=== PATIENT | female | born 1990 | race African-American/Black ===

== ENCOUNTER 2020-02-18 10:08 | Outpatient (REF) | payer OTHER, SELFPAY ==
[2020-02-18 11:08] LABS: MANUAL DIFF FLAG NO
[2020-02-18 11:20] LABS: Eosinophils Absolute Auto 0.1 X10*3/uL (0.0-0.4); Eosinophils Percent Auto 1.4 % (0-4); Hematocrit 38.9 % (37-47); Hemoglobin 11.2 g/dl (12.0-16.0); Imm Gran Abs Auto 0.01 X10*3/uL (0.00-0.03); Imm Gran Pct Auto 0.2 % (0.0-0.4); Lymphocytes Absolute Auto 2.7 X10*3/uL (1.2-4.9); Mean Corpuscular HGB Conc 28.8 g/dl (31.0-35.0); Mean Corpuscular Hemoglobin 23.1 pg (27.0-33.0); Mean Corpuscular Volume 80.2 fL (80-98); Mean Platelet Volume 9.7 fL (9.4-12.3); Monocytes Absolute Auto 0.2 X10*3/uL (0.1-1.2); Monocytes Percent Auto 4.8 % (2-11); Neutrophils Percent Auto 39.6 % (45-73); Platelet Count 306 X10*3/uL (160-400); Red Blood Count 4.85 X10*6/uL (4.20-5.50); Red Cell Distribution Width 21.6 % (11.0-16.0)
[2020-02-18 11:36] LABS: Anion Gap 10 (12-20); Blood Urea Nitrogen 9 mg/dL (9-16); Calcium 9.2 mg/dL (8.4-10.2); Carbon Dioxide 25 mmol/L (22-29); Chloride 105 mmol/L (96-108); Cholesterol 214 mg/dL; Estimated Glomerular Filt Rate > 60; Glucose Fasting 86 mg/dL (60-99); HDL Cholesterol 52 mg/dL; LDL Cholesterol Calculated 147 mg/dl; Potassium 4.1 mmol/l (3.3-5.1); Sodium 136 mmol/L (135-145); Triglycerides 76 mg/dL
[2020-02-18 11:59] LABS: Ferritin 19 ng/mL (10-122); TSH reflex Free T4 0.76 mIU/mL (0.32-4.0)
== END 2020-02-18 10:09 | disposition home or self-care (01) ==
LOC: HO.HMGCLDS 10:08
PROVIDERS: PCP Internal Medicine; Visit Provider Internal Medicine
DX: E61.1 Iron deficiency (principal); Z00.01 Encounter for general adult medical examination with abnormal findings
CPT/HCPCS: 36415; 80048; 80061; 82728; 84443; 85025

== ENCOUNTER 2020-03-28 12:10 | Emergency (ER) | payer OTHER, SELFPAY ==
[2020-03-28 12:41] VITALS: BP 130/67; PULSE 98; RESP 18; TEMP 37.1; O2SAT 98; BMI 30.1
--- NOTE | 2020-03-28 15:14 | ED.GENADULT ---
HPI - General Adult General Chief complaint: General Medical Stated complaint: drainage to be removed - surgery in [place] Time Seen by Provider: 03/28/20 15:03 Source: patient Mode of arrival: ambulatory History of Present Illness HPI narrative: 29-year-old female with past medical history of iron deficiency anemia, tachycardia, presenting to the ED requesting abdominal drain removal S/P abdominal/back/flank liposuction with [place] Butt Lift in [place] on 03/20/2020. States was supposed to have drain removed on 03/24 in [place], however, was draining too much so surgeon left drain in, and now patient is back in [place]. Denies drainage at present. Reports residual soreness. Denies fever, chills, nausea/vomiting Onset (ago): day(s) Related Data Home Medications Medication Instructions Recorded Confirmed ferrous sulfate PO 02/04/20 02/25/20 multivitamin 1 tab PO DAILY 02/04/20 02/25/20 Allergies Allergy/AdvReac Type Severity Reaction Status Date / Time latex Allergy Unknown Unknown Verified 02/02/20 12:05 pseudoephedrine [Sudafed] Allergy Unknown unknown Verified 02/02/20 12:05 Review of Systems Review of Systems: Constitutional: No Weight loss, No Fever, No Chills Gastrointestinal: No Nausea, No Vomiting, No Diarrhea, No Constipation, + Abdominal soreness Genitourinary: No irregular bleeding, No Dysuria, No Urinary Frequency, No Hematuria, No Flank Pain Musculoskeletal: No joint pain, No Myalgias, No Joint Swelling Skin: +abdominal/back bruising, No rash Yes all other systems are reviewed and are negative [facility] Past Medical History Medical History (Updated 03/28/20 @ 16:08 by EYAD Garner) Encounter for general adult medical examination with abnormal findings History of pica Iron deficiency Palpitations Tachycardia Surgical History No pertinent past surgical history Family History Family History Father Aneurysm Mother No problems noted. Maternal Grandmother HTN (hypertension) Maternal Grandfather No problems noted. Paternal Grandfather No problems noted. Paternal Grandmother No problems noted. Daughter No problems noted. Social History Social History Alcohol intake: never Smoking Status: Never smoker Use of substances other than those prescribed or required for medical reasons: No Advance Directives: No Advance Directives Information Provided: No Physical Exam Vital Signs: Vital Signs: Last Vital Signs Temp 98.8 F 03/28/20 12:41 Pulse 98 03/28/20 12:41 Resp 18 03/28/20 12:41 BP 130/67 03/28/20 12:41 Pulse Ox 98 03/28/20 12:41 Body Mass Index 30.1 Const: General: cooperative and healthy appearing Orientation/consciousness: patient oriented x3 Limitations: no limitations HENMT: Head: Yes normal to inspection Ears: hearing grossly normal bilaterally General nose exam: Normal external nose present Face and sinus: Yes normal facial exam Eyes: General: appearance normal, both eyes and all related structures EOM: EOMs intact bilaterally Neck: Neck: Yes normal visual inspection Resp: Effort & Inspection: normal respiratory effort Cardio: Rate: regular rate GI: Other: Patient will not sit/lay for proper abdominal exam due to [place] Butt Lift Diffuse healing ecchymosis to abdomen/back Bulb suction drain intact to right lower quadrant/suprapubic region. No surrounding cellulitis/fluctuance/induration. Small amount of serosanguineous drainage Inspection: Yes normal to inspection Palpation (GI): Soft to palpation, Tenderness to palpation present (GI) (Mild tenderness to lower abdomen), no guarding and not rigid Skin: Rashes: no rashes Wounds: no wounds Neuro: General: patient oriented x3 Gait exam (Neuro): Normal gait present Extrem: General: Yes normal to inspection Course Course Course Narrative: Drain removed in ED without complications. Dressing applied 1605-patient left prior to DC paperwork Medical Decision Making [facility] Narrative Medical decision making narrative: 29-year-old female with past medical history of iron deficiency anemia, tachycardia, presenting to the ED requesting abdominal drain removal S/P abdominal/back/flank liposuction with [place] Butt Lift in [place] on 03/20/2020. On exam VSS, NAD/well-appearing, bulb suction drain intact to right suprapubic/right lower quadrant area without surrounding infection/fluctuance or induration. Case discussed with on-call surgeon, Dr. Quintanilla, recommended removal of drain in the ED, and pt can follow-up in his office on Sunday Discharge Plan Discharge Clinical Impression: Post-operative complication Patient Disposition: Elopement Instructions: Surgical Site Infections (ED) Additional Instructions: Your drain was removed today in the ED. You need to follow-up with the surgeon on Sunday Keep area dry and clean It is normal for it to drain a little for the next 48 hours if you develop have fever, draining persists or worsens, area begins look infected, is red, or their is pus drainage return to the ED Prescriptions: No Action multivitamin [One-A-Day Essential] Tablet 1 tab PO DAILY RF: 0 ferrous sulfate PO RF: 0 Referrals: Skyler Quintanilla MD [Physician] - 2 days Discharge Date/Time: 03/28/20 16:06
--- NOTE | 2020-03-28 16:00 | PC.NURSE ---
PT PRESENTS TO ED REQUESTING TO HAVE ABD DRAIN REMOVED WHICH WAS RECENTLY PLACED IN [place] S/O LIPOSUCTION. PT OFFERS NO ACUTE COMPLAINTS, DRAINAGE INSERTION SITE SKIN INTACT W/OUT REDNESS OR SIGNS OF INFECTION, DRAIN REMOVED BY PA. PT AWARE/AGREEABLE TO PLAN OF CARE AND PENDING D/C W/ FOLLOW UP WITH SURGEON.
--- NOTE | 2020-03-28 16:06 | PC.NURSE ---
PT ELOPED PRIOR TO RECEIVING D/C [facility]
== END 2020-03-28 16:06 | disposition left against medical advice (07) ==
PROVIDERS: Emergency Provider Emergency Medicine Emergency Medical Services
DX: L76.82 Other postprocedural complications of skin and subcutaneous tissue (principal); R10.31 Right lower quadrant pain; Y83.4 Other reconstructive surgery as the cause of abnormal reaction of the patient, or of later complication, without mention of misadventure at the time of the procedure; Y81.3 Surgical instruments, materials and general- and plastic-surgery devices (including sutures) associated with adverse incidents
CPT/HCPCS: 99282; 99284

== ENCOUNTER 2021-11-25 12:41 | Outpatient (REF) | payer OTHER, SELFPAY ==
[2021-11-25 13:49] LABS: MANUAL DIFF FLAG NO
[2021-11-25 13:50] LABS: Basophils Percent Auto 0.2 % (0-2); Eosinophils Percent Auto 0.8 % (0-4); Hematocrit 37.9 % (37.0-47.0); Hemoglobin 11.8 g/dl (12.0-16.0); Imm Gran Abs Auto 0.01 X10*3/uL (0.00-0.03); Imm Gran Pct Auto 0.2 % (0.0-0.4); Lymphocytes Absolute Auto 2.3 X10*3/uL (1.2-4.9); Lymphocytes Percent Auto 46.9 % (20-40); Mean Corpuscular HGB Conc 31.1 g/dl (31.0-35.0); Mean Corpuscular Volume 83.7 fL (80.0-98.0); Mean Platelet Volume 10.3 fL (9.4-12.3); Monocytes Absolute Auto 0.3 X10*3/uL (0.1-1.2); Monocytes Percent Auto 6.8 % (2-11); Neutrophils Absolute Auto 2.2 x10*3/uL (2.0-8.3); Neutrophils Percent Auto 45.1 % (45-73); Platelet Count 286 X10*3/uL (160-400); Red Blood Count 4.53 X10*6/uL (4.20-5.50); Red Cell Distribution Width 13.7 % (11.0-16.0); White Blood Count 4.8 X10*3/uL (4.8-10.8)
[2021-11-25 14:54] LABS: Alanine Aminotransferase < 6 U/L (0-31); Albumin Level 4.4 g/dL (3.5-5.0); Alkaline Phosphatase 65 U/L (39-117); Anion Gap 13 (12-20); Aspartate Amino Transferase 13 U/L (5-31); Bilirubin Total 0.4 mg/dL (0.0-1.0); Blood Urea Nitrogen 8 mg/dL (9-16); Calcium 9.2 mg/dL (8.4-10.2); Carbon Dioxide 24 mmol/L (22-29); Chloride 108 mmol/L (96-108); Estimated Glomerular Filt Rate > 60; Glucose Random 98 mg/dL (60-115); Iron 55 mcg/dL (30-160); Percent Iron Saturation 13 % (15-50); Potassium 4.4 mmol/L (3.3-5.1); Sodium 141 mmol/L (135-145); Total Iron Binding Capacity 428 mcg/dL (228-428); Total Protein 7.6 g/dL (6.5-8.0); Unsaturated Iron Binding 373 ug/dL
[2021-11-25 15:06] LABS: TSH reflex Free T4 0.61 uIU/mL (0.32-4.0)
[2021-11-25 15:09] LABS: Vitamin B12 297 pg/mL (200-900)
== END 2021-11-25 12:42 | disposition home or self-care (01) ==
LOC: HO.HMGCLDS 12:41
PROVIDERS: PCP Internal Medicine; Visit Provider Internal Medicine
DX: R20.2 Paresthesia of skin (principal); D50.9 Iron deficiency anemia, unspecified
CPT/HCPCS: 36415; 80053; 82607; 83540; 84443; 85025

== ENCOUNTER 2022-03-23 12:05 | Outpatient (REF) | payer OTHER, SELFPAY ==
--- NOTE | 2022-03-23 10:00 | EMG_ITS ---
Right median and ulnar motor and sensory studies were performed. Right radial sensory study was performed and paraspinal muscles were tested with a needle. IMPRESSION: This is an unremarkable study with no significant finding. MD BAKARI Echols/[facility] / [id number]
== END 2022-03-23 12:06 | disposition home or self-care (01) ==
LOC: HO.NEURO 12:05
PROVIDERS: PCP Internal Medicine; Visit Provider Internal Medicine
DX: R20.2 Paresthesia of skin (principal)
CPT/HCPCS: 95886; 95909

== ENCOUNTER 2022-03-24 08:48 | Outpatient (REF) | payer OTHER, SELFPAY ==
[2022-03-24 11:22] LABS: MANUAL DIFF FLAG NO
[2022-03-24 11:28] LABS: Basophils Percent Auto 0.2 % (0-2); Eosinophils Absolute Auto 0.1 X10*3/uL (0.0-0.4); Eosinophils Percent Auto 0.9 % (0-4); Hematocrit 38.1 % (37.0-47.0); Hemoglobin 11.3 g/dl (12.0-16.0); Imm Gran Abs Auto 0.01 X10*3/uL (0.00-0.03); Imm Gran Pct Auto 0.2 % (0.0-0.4); Lymphocytes Percent Auto 36.6 % (20-40); Mean Corpuscular HGB Conc 29.7 g/dl (31.0-35.0); Mean Corpuscular Hemoglobin 25.6 pg (27.0-33.0); Mean Corpuscular Volume 86.4 fL (80.0-98.0); Mean Platelet Volume 10.8 fL (9.4-12.3); Monocytes Absolute Auto 0.3 X10*3/uL (0.1-1.2); Monocytes Percent Auto 4.8 % (2-11); Neutrophils Absolute Auto 3.1 x10*3/uL (2.0-8.3); Neutrophils Percent Auto 57.3 % (45-73); Platelet Count 286 X10*3/uL (160-400); Red Blood Count 4.41 X10*6/uL (4.20-5.50); Red Cell Distribution Width 14.6 % (11.0-16.0); White Blood Count 5.4 X10*3/uL (4.8-10.8)
[2022-03-24 12:07] LABS: Ferritin 11 ng/mL (10-122); TSH reflex Free T4 0.66 uIU/mL (0.32-4.0)
[2022-03-24 12:15] LABS: Vitamin B12 329 pg/mL (200-900)
[2022-03-28 16:39] LABS: Vitamin D 25-OH, D2 <4 ng/mL; Vitamin D 25-OH, D3 11 ng/mL; Vitamin D 25-OH, Total 11 ng/mL (30-100)
== END 2022-03-24 08:49 | disposition home or self-care (01) ==
LOC: HO.HMGCLDS 08:48
PROVIDERS: PCP Internal Medicine; Visit Provider Internal Medicine
DX: D50.9 Iron deficiency anemia, unspecified (principal); K59.01 Slow transit constipation; R53.83 Other fatigue
CPT/HCPCS: 36415; 82306; 82607; 82728; 84443; 85025

== ENCOUNTER 2022-12-27 13:09 | Outpatient (AMB) | payer OTHER, SELFPAY ==
[2022-12-27 13:12] VITALS: BP 126/82; PULSE 69; O2SAT 96; BMI 29.7
--- NOTE | 2022-12-27 13:12 | MHC.PC.OV ---
Vital Signs 12/27/22 13:12 Height 5 ft 2.5 in Weight 165 lb 4 oz BMI 29.7 BP 126/82 Blood Pressure Location Rt brachial Position Sitting Pulse 69 Pulse Source Pulse Oximeter Pulse Oximetry (%) 96 Oxygen Delivery Method Room Air Intake Visit Reasons: Chest/Back pain Allergies No Known Allergies Allergy (Verified 12/27/22 13:12) Medication List - Last Reconciled 12/27/22 by Joe Hutchinson MD cholecalciferol (vitamin D3) 25 mcg PO DAILY 90 days cyanocobalamin (vitamin B-12) 1,000 mcg PO DAILY 90 days [ferrous sulfate 45 mg daily. pt reports] multivitamin (One-A-Day Essential tablet) 1 tab PO DAILY sennosides-docusate sodium 8.6-50 mg (Senna Plus) 2 tab-caps (2 x 8.6-50 mg) PO BEDTIME PRN 90 days Tobacco use date assessed: 12/27/22 Dental Screening Dental Screen Date: 12/27/22 Did you have a dental visit in the last 12 months?: No Did you have a dental problem in the last 6 months where you did not have access to dental care?: No Was dental information given to patient?: Patient declined HPI Chest/Back pain HPI Details Patient is a 32-year-old female came in today to talk about a medical problem Patient says that she was in the gym doing exercises and next day she started having severe chest pain which was radiating to back Patient ended up going to emergency room where she was evaluated with EKG and was told that it is not cardiac related pain. Patient states that her half sister recently with sudden cardiac arrest she was 42 years old. Which is making her very nervous. She would like to be evaluated by a bliss press operator. I have placed a referral for her. Meanwhile she is requesting a letter that she may continue with gym training. Letter provided She may continue with stationary exercises at gym while waiting to be evaluated by Cardiology. [facility] Medical History Palpitations Tachycardia Encounter for general adult medical examination with abnormal findings Iron deficiency History of pica Surgical History No pertinent past surgical history Family History Father Aneurysm Mother No problems noted. Maternal Grandmother HTN (hypertension) Maternal Grandfather No problems noted. Paternal Grandfather No problems noted. Paternal Grandmother No problems noted. Daughter No problems noted. Social History Housing: House Alcohol intake: never Patient Tobacco Use Status: Never used Tobacco e-Cigarette/Vaping Use: Never Used Current occupational status: employed Cognitive needs: No Hearing needs: No Vision needs: Yes Questionnaire PHQ-9 Over the last 2 weeks, how often have you been bothered by any of the following problems? 33817 - PHQ-9 Billing: Patient declined-do not bill Source: Developed by Drs. Иван Lofton, Shikha Soto, Ganesh Sinha and colleagues, with an educational david from [employer]. Thrive Questionnaire Date Thrive assessed: 12/27/22 I am a: Patient What is your living situation today?: I choose not to answer this question Within the past 12 months, did the food you bought not last and you didn't have the money to get more?: I choose not to answer this question Within the past 12 months, did you worry whether your food would run out before you got money to buy more?: I choose not to answer this question Do you have trouble paying for medicines?: I choose not to answer this question Do you have trouble getting transportation to medical appointments?: I choose not to answer this question Do you have trouble paying your heating and electricity bill?: I choose not to answer this question Do you have trouble taking care of your child, family member or friend?: I choose not to answer this question Do you have trouble with day-to-day activities such as bathing, preparing meals, shopping, managing finances, etc.?: I choose not to answer this question Are you currently unemployed and looking for a job?: I choose not to answer this question Are you interested in more education?: I choose not to answer this question Currently or been in a relationship where the following occur: I choose not to answer this question AUDIT C Alcohol Use Questionnaire (AUDIT-C) 1. How often do you have a drink containing alcohol?: 2-4 times a month 2. How many drinks containing alcohol do you have on a typical day when you are drinking?: 1 or 2 3. How often do you have six or more drinks on one occasion?: Never Total Score: 2 Score Reviewed/Action Taken: Yes LUL-7 AMB Questionnaire LUL-7 Date LUL - 7 assessed: 12/27/22 Source: Developed by Drs. Иван Lofton, Shikha Soto, Ganesh Sinha and colleagues, with an educational david from [employer]. LUL-7 Assessment Billing LUL-7 Assessment Tool: pt declined-do not bill Review of Systems Const Denies chills and Denies fever(s) ENT Denies epistaxis and Denies nasal discharge Card Denies chest pain Resp Denies chest congestion, Denies cough and Denies hemoptysis GI Denies diarrhea and Denies nausea Skin/Breast Denies rash Neuro Reports no additional complaints Psych Reports no additional complaints Endo Reports no additional complaints Physical exam (Primary Care) Vital Signs: Last Vital Signs Pulse 69 12/27/22 13:12 BP 126/82 12/27/22 13:12 Pulse Ox 96 12/27/22 13:12 Oxygen Delivery Method Room Air 12/27/22 13:12 BMI result Body Mass Index 29.7 Tobacco/Smoking Status: Tobacco use Status Tobacco use date assessed 12/27/22 12/27/22 13:14 Patient Tobacco Use Status Never used Tobacco 12/27/22 13:14 e-Cigarette/Vaping Use Never Used 12/27/22 13:14 Thrive Assessment: Date of Thrive Assessment Date Thrive assessed 11/25/21 12/27/22 13:14 Currently or been in a relationship where the following occur: I choose not to answer this question Const General: cooperative, comfortable and no acute distress Orientation/consciousness: patient oriented x3 [facility] Head: Yes normocephalic Eyes General: appearance normal, both eyes and all related structures Neck Neck: Yes supple Resp Effort & Inspection: normal respiratory effort, no cough and no stridor Cardio Rhythm: regular rhythm Heart sounds: S1 normal heart sound present and S2 normal heart sound present Skin General skin exam: turgor normal Neuro General: patient oriented x3, tone normal and moves all extremities Extrem Right lower extremity: no edema Left lower extremity: no edema Assessment and Plan Assessment & Plan (1) Family history of sudden cardiac : Code(s): Z82.41 - Family history of sudden cardiac (2) Vitamin B 12 deficiency: Code(s): E53.8 - Deficiency of other specified B group vitamins (3) Vitamin D deficiency: Code(s): E55.9 - Vitamin D deficiency, unspecified (4) Iron deficiency anemia: Code(s): D50.9 - Iron deficiency anemia, unspecified Qualifiers: Iron deficiency anemia type: chronic blood loss Qualified Code(s): D50.0 - Iron deficiency anemia secondary to blood loss (chronic) (5) Iron deficiency: Code(s): E61.1 - Iron deficiency Plan Patient is a 32-year-old female came in today to talk about a medical problem Patient says that she was in the gym doing exercises and next day she started having severe chest pain which was radiating to back Patient ended up going to emergency room where she was evaluated with EKG and was told that it is not cardiac related pain. Patient states that her half sister recently with sudden cardiac arrest she was 42 years old. Which is making her very nervous. She would like to be evaluated by a bliss press operator. I have placed a referral for her. Meanwhile she is requesting a letter that she may continue with gym training. Letter provided She may continue with stationary exercises at gym while waiting to be evaluated by Cardiology. She is supposed to be on iron supplement vitamin-D supplement which she has stop taking She is due for CBC. Patient have a history of chronic anemia due to heavy menstrual cycle. Orders: Orders Vitamin D 25-OH (D2 and D3) Today D50.9 - Iron deficiency anemia, unspecified, E53.8 - Deficiency of other specified B group vitamins, E55.9 - Vitamin D deficiency, unspecified, E61.1 - Iron deficiency Vitamin B12 Today D50.9 - Iron deficiency anemia, unspecified, E53.8 - Deficiency of other specified B group vitamins, E55.9 - Vitamin D deficiency, unspecified, E61.1 - Iron deficiency Ferritin Today D50.9 - Iron deficiency anemia, unspecified, E53.8 - Deficiency of other specified B group vitamins, E55.9 - Vitamin D deficiency, unspecified, E61.1 - Iron deficiency Complete Blood Count Auto Diff Today D50.9 - Iron deficiency anemia, unspecified, E53.8 - Deficiency of other specified B group vitamins, E55.9 - Vitamin D deficiency, unspecified, E61.1 - Iron deficiency Comprehensive Met. Panel Today D50.9 - Iron deficiency anemia, unspecified, E53.8 - Deficiency of other specified B group vitamins, E55.9 - Vitamin D deficiency, unspecified, E61.1 - Iron deficiency LDL Cholesterol Direct Today D50.9 - Iron deficiency anemia, unspecified, E53.8 - Deficiency of other specified B group vitamins, E55.9 - Vitamin D deficiency, unspecified, E61.1 - Iron deficiency Referrals Cardiology Referral Z82.41 - Family history of sudden cardiac Coding Level of Care Code Est Pt Level 4 (96692) Diagnoses Family history of sudden cardiac Z82.41 Vitamin B 12 deficiency E53.8 Vitamin D deficiency E55.9 Iron deficiency anemia due to chronic blood loss D50.0 Iron deficiency anemia type: chronic blood loss Iron deficiency E61.1
== END 2022-12-27 14:10 | disposition home or self-care (01) ==
PROVIDERS: PCP Internal Medicine; Visit Provider Internal Medicine
DX: D50.0 Iron deficiency anemia secondary to blood loss (chronic) (principal); Z82.41 Family history of sudden cardiac death
CPT/HCPCS: 99214

== ENCOUNTER 2023-01-02 07:47 | Outpatient (REF) | payer OTHER, SELFPAY ==
[2023-01-02 11:52] LABS: MANUAL DIFF FLAG NO
[2023-01-02 12:05] LABS: Basophils Percent Auto 0.2 % (0-2); Eosinophils Percent Auto 0.7 % (0-4); Hematocrit 36.6 % (37.0-47.0); Hemoglobin 10.7 g/dl (12.0-16.0); Imm Gran Abs Auto 0.01 X10*3/uL (0.00-0.03); Imm Gran Pct Auto 0.2 % (0.0-0.4); Lymphocytes Percent Auto 34.7 % (20-40); Mean Corpuscular HGB Conc 29.2 g/dl (31.0-35.0); Mean Corpuscular Hemoglobin 22.4 pg (27.0-33.0); Mean Corpuscular Volume 76.6 fL (80.0-98.0); Mean Platelet Volume 11.2 fL (9.4-12.3); Monocytes Absolute Auto 0.2 X10*3/uL (0.1-1.2); Monocytes Percent Auto 4.1 % (2-11); Neutrophils Absolute Auto 3.4 x10*3/uL (2.0-8.3); Neutrophils Percent Auto 60.1 % (45-73); Platelet Count 242 X10*3/uL (160-400); Red Blood Count 4.78 X10*6/uL (4.20-5.50); Red Cell Distribution Width 17.3 % (11.0-16.0); White Blood Count 5.6 X10*3/uL (4.8-10.8)
[2023-01-02 12:30] LABS: Alanine Aminotransferase 6 U/L (0-31); Albumin Level 4.3 g/dL (3.5-5.0); Alkaline Phosphatase 69 U/L (39-117); Anion Gap 10 (12-20); Aspartate Amino Transferase 17 U/L (5-31); Bilirubin Total 0.5 mg/dL (0.0-1.0); Blood Urea Nitrogen 12 mg/dL (9-16); Calcium 9.3 mg/dL (8.4-10.2); Carbon Dioxide 22 mmol/L (22-29); Chloride 110 mmol/L (96-108); Cholesterol 182 mg/dL (<200); Estimated Glomerular Filt Rate > 60; Glucose Fasting 89 mg/dL (60-99); Glucose Random 89 mg/dL (60-115); HDL Cholesterol 57 mg/dL (>40); LDL Cholesterol Calculated 115 mg/dL (<100); Potassium 3.7 mmol/L (3.3-5.1); Sodium 138 mmol/L (135-145); Total Protein 7.8 g/dL (6.5-8.0); Triglycerides 50 mg/dL (<150)
[2023-01-02 12:48] LABS: Vitamin B12 366 pg/mL (200-900)
[2023-01-02 12:53] LABS: Ferritin 10 ng/mL (10-122)
[2023-01-04 06:48] LABS: LDL Cholesterol Direct 115 mg/dL (<100)
[2023-01-06 16:18] LABS: Vitamin D 25-OH, D2 <4 ng/mL; Vitamin D 25-OH, D3 16 ng/mL; Vitamin D 25-OH, Total 16 ng/mL (30-100)
== END 2023-01-02 07:48 | disposition home or self-care (01) ==
LOC: HO.HMGCLDS 07:47
PROVIDERS: PCP Internal Medicine; Visit Provider Internal Medicine
DX: Z00.01 Encounter for general adult medical examination with abnormal findings (principal); D50.9 Iron deficiency anemia, unspecified; E53.8 Deficiency of other specified B group vitamins; E55.9 Vitamin D deficiency, unspecified; R53.83 Other fatigue
CPT/HCPCS: 36415; 80053; 80061; 82306; 82607; 82728; 83721; 84443; 85025

== ENCOUNTER 2023-01-04 08:12 | Outpatient (AMB) | payer OTHER, SELFPAY ==
--- NOTE | 2023-01-04 10:08 | MHC.PC.OV ---
Vital Signs 01/04/23 10:35 Height 5 ft 3 in Weight 165 lb BMI 29.2 Intake Visit Reasons: Discuss Labs ~ Allergies No Known Allergies Allergy (Verified 01/04/23 10:08) Medication List - Last Reconciled 01/04/23 by Joe Hutchinson MD No Known Home Meds Tobacco use date assessed: 01/04/23 Dental Screening Dental Screen Date: 01/04/23 Did you have a dental visit in the last 12 months?: No Did you have a dental problem in the last 6 months where you did not have access to dental care?: No Was dental information given to patient?: Patient has dentist HPI Discuss Labs ~ HPI Details Patient is 32 year old female who continued to complain of feeling tired Patient have a long history of constipation, most likely have internal hemorrhoids. Currently she is taking jjyh-[id number] medication which has. I have sent senna S tablets as well she may take 1 at night as needed and drink plenty of water Patient continued to be iron deficiency anemic with microcytic indices I have sent iron supplement which can cause more constipation patient is aware of that I have also book her appointment with gastroenterology for further evaluation. She is also deficient in vitamin-D and B12 supplements sent patient will repeat labs again in 3 months. She is also complaining that she is exercising and trying to eat right but unable to lose any weight. Her BMI is 29.2. I have booked her appointment with the dietitian for consultation. [facility] Medical History Palpitations Tachycardia Encounter for general adult medical examination with abnormal findings Iron deficiency History of pica Surgical History No pertinent past surgical history Family History Father Aneurysm Mother No problems noted. Maternal Grandmother HTN (hypertension) Maternal Grandfather No problems noted. Paternal Grandfather No problems noted. Paternal Grandmother No problems noted. Daughter No problems noted. Social History Housing: House Alcohol intake: never Patient Tobacco Use Status: Never used Tobacco e-Cigarette/Vaping Use: Never Used Current occupational status: employed Cognitive needs: No Hearing needs: No Vision needs: Yes Questionnaire Thrive Questionnaire Date Thrive assessed: 12/27/22 AUDIT C Alcohol Use Questionnaire (AUDIT-C) 1. How often do you have a drink containing alcohol?: 2-4 times a month 2. How many drinks containing alcohol do you have on a typical day when you are drinking?: 1 or 2 3. How often do you have six or more drinks on one occasion?: Never Total Score: 2 Score Reviewed/Action Taken: Yes LUL-7 AMB Questionnaire LUL-7 Date LUL - 7 assessed: 12/27/22 Source: Developed by Drs. Иван Lofton, Shikha Soto, Ganesh Sinha and colleagues, with an educational david from [employer]. Review of Systems Const Denies chills and Denies fever(s) ENT Denies epistaxis and Denies nasal discharge Card Denies chest pain Resp Denies chest congestion, Denies cough and Denies hemoptysis GI Denies diarrhea and Denies nausea Skin/Breast Denies rash Neuro Reports no additional complaints Psych Reports no additional complaints Endo Reports no additional complaints Physical exam (Primary Care) BMI result Body Mass Index 29.2 Tobacco/Smoking Status: Tobacco use Status Tobacco use date assessed 01/04/23 01/04/23 10:09 Patient Tobacco Use Status Never used Tobacco 01/04/23 10:09 e-Cigarette/Vaping Use Never Used 01/04/23 10:09 Thrive Assessment: Date of Thrive Assessment Date Thrive assessed 12/27/22 01/04/23 10:09 Telehealth Telehealth Location of provider rendering services: practice address Location of patient: address on file Patient Identification confirmed using: Name, : Yes Telehealth method: video Patient verbally consented to treatment: Yes Patient verbally consented to billing insurance company: Yes Patient informed of any privacy concerns related to visit: Yes Assessment and Plan Assessment & Plan (1) Iron deficiency anemia: Code(s): D50.9 - Iron deficiency anemia, unspecified Qualifiers: Iron deficiency anemia type: chronic blood loss Qualified Code(s): D50.0 - Iron deficiency anemia secondary to blood loss (chronic) (2) Tired: Code(s): R53.83 - Other fatigue (3) Vitamin D deficiency: Code(s): E55.9 - Vitamin D deficiency, unspecified (4) Vitamin B 12 deficiency: Code(s): E53.8 - Deficiency of other specified B group vitamins (5) Over weight: Code(s): E66.3 - Overweight (6) Hemorrhoids: Code(s): K64.9 - Unspecified hemorrhoids Qualifiers: Hemorrhoid type: first degree Qualified Code(s): K64.0 - First degree hemorrhoids (7) Constipation by delayed colonic transit: Code(s): K59.01 - Slow transit constipation Plan Patient is 32 year old female who continued to complain of feeling tired Patient have a long history of constipation, most likely have internal hemorrhoids. Currently she is taking embz-uzh-fqkcjgw medication which has. I have sent senna S tablets as well she may take 1 at night as needed and drink plenty of water Patient continued to be iron deficiency anemic with microcytic indices I have sent iron supplement which can cause more constipation patient is aware of that I have also book her appointment with gastroenterology for further evaluation. She is also deficient in vitamin-D and B12 supplements sent patient will repeat labs again in 3 months. She is also complaining that she is exercising and trying to eat right but unable to lose any weight. Her BMI is 29.2. I have booked her appointment with the dietitian for consultation. Orders: Orders Ferritin 3 Months D50.9 - Iron deficiency anemia, unspecified, E53.8 - Deficiency of other specified B group vitamins, E55.9 - Vitamin D deficiency, unspecified, E66.3 - Overweight, K59.01 - Slow transit constipation, K64.9 - Unspecified hemorrhoids, R53.83 - Other fatigue Complete Blood Count Auto Diff 3 Months D50.9 - Iron deficiency anemia, unspecified, E53.8 - Deficiency of other specified B group vitamins, E55.9 - Vitamin D deficiency, unspecified, E66.3 - Overweight, K59.01 - Slow transit constipation, K64.9 - Unspecified hemorrhoids, R53.83 - Other fatigue Vitamin B12 Today D50.9 - Iron deficiency anemia, unspecified, E53.8 - Deficiency of other specified B group vitamins, E55.9 - Vitamin D deficiency, unspecified, E66.3 - Overweight, K59.01 - Slow transit constipation, K64.9 - Unspecified hemorrhoids, R53.83 - Other fatigue Vitamin D 25-OH (D2 and D3) Today D50.9 - Iron deficiency anemia, unspecified, E53.8 - Deficiency of other specified B group vitamins, E55.9 - Vitamin D deficiency, unspecified, E66.3 - Overweight, K59.01 - Slow transit constipation, K64.9 - Unspecified hemorrhoids, R53.83 - Other fatigue Referrals Gastroenterology Referral K59.01 - Slow transit constipation, K64.9 - Unspecified hemorrhoids Coding Level of Care Code Tele Est Pt Level 4 (55164) Diagnoses Iron deficiency anemia due to chronic blood loss D50.0 Iron deficiency anemia type: chronic blood loss Tired R53.83 Vitamin D deficiency E55.9 Vitamin B 12 deficiency E53.8 Over weight E66.3 Grade I hemorrhoids K64.0 Hemorrhoid type: first degree Constipation by delayed colonic transit K59.01 Time Spent (min) 30 Comment 5 prep, 16 with patient, 9 charting, coordination of care
[2023-01-04 10:35] VITALS: BMI 29.2
== END 2023-01-04 12:32 | disposition home or self-care (01) ==
LOC: HO.HMGC 08:12
PROVIDERS: PCP Internal Medicine; Visit Provider Internal Medicine
DX: D50.0 Iron deficiency anemia secondary to blood loss (chronic) (principal); R53.83 Other fatigue; E55.9 Vitamin D deficiency, unspecified; E53.8 Deficiency of other specified B group vitamins; E66.3 Overweight; K64.0 First degree hemorrhoids; K59.01 Slow transit constipation
CPT/HCPCS: 99214

== ENCOUNTER 2023-02-14 08:44 | Outpatient (AMB) | payer OTHER, SELFPAY ==
--- NOTE | 2023-02-14 08:47 | A.OFFPC_ITS ---
Vital Signs 3 02/14/23 08:49 Height 5 ft 3 in Weight 167 lb BMI 29.6 BP 110/80 Blood Pressure Location Rt brachial Position Sitting Pulse 80 Pulse Source Pulse Oximeter Pulse Oximetry (%) 97 Oxygen Delivery Method Room Air Intake Visit Reasons: Right side numbness intermittent Allergies No Known Allergies Allergy (Verified 02/14/23 08:49) Medication List - Last Reconciled 02/14/23 by Joe Hutchinson MD No Known Home Meds Tobacco use date assessed: 02/14/23 Dental Screening Dental Screen Date: 02/14/23 Did you have a dental visit in the last 12 months?: No Was dental information given to patient?: Patient has dentist HPI Right side numbness intermittent 2 HPI0 Details Patient has been going to gym and lifting weights She came in today with a chief complaint of feeling of numbness in her right shoulder area And chest discomfort in middle of chest which gets worse when she moves her arms. 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 Letter provided she may continue aerobic exercises and treadmill but no lifting wait for another month. EKG done today showed no acute findings normal sinus rhythm. There is slight are are we have indeed 3 and AVF which does not explain her discomfort There is no change from EKG done in 2019 Patient have iron deficiency anemia, she is supposed to be on iron supplement but still not taking Explained to her that unless she takes the iron she is going to continue feel tired Constipation is better. [facility] Medical History Palpitations Tachycardia Encounter for general adult medical examination with abnormal findings Iron deficiency History of pica Surgical History No pertinent past surgical history Family History Father Aneurysm Mother No problems noted. Maternal Grandmother HTN (hypertension) Maternal Grandfather No problems noted. Paternal Grandfather No problems noted. Paternal Grandmother No problems noted. Daughter No problems noted. Social History Housing: House Alcohol intake: never Patient Tobacco Use Status: Never used Tobacco e-Cigarette/Vaping Use: Never Used Current occupational status: employed Cognitive needs: No Hearing needs: No Vision needs: Yes Questionnaire Thrive Questionnaire Date Thrive assessed: 12/27/22 LUL-7 AMB Questionnaire LUL-7 Date LUL - 7 assessed: 12/27/22 Source: Developed by Drs. Иван Lofton, Shikha Soto, Ganesh Sinha and colleagues, with an educational david from [employer]. Review of Systems Const Denies chills and Denies fever(s) ENT Denies epistaxis and Denies nasal discharge Resp Denies chest congestion, Denies cough and Denies hemoptysis GI Denies diarrhea and Denies nausea Skin/Breast Denies rash Neuro Reports no additional complaints Psych Reports no additional complaints Endo Reports no additional complaints Physical exam (Primary Care) Vital Signs: Last Vital Signs Pulse 80 02/14/23 08:49 BP 110/80 02/14/23 08:49 Pulse Ox 97 02/14/23 08:49 Oxygen Delivery Method Room Air 02/14/23 08:49 BMI result Body Mass Index 29.6 Tobacco/Smoking Status: Tobacco use Status Tobacco use date assessed 02/14/23 02/14/23 08:52 Patient Tobacco Use Status Never used Tobacco 02/14/23 08:52 e-Cigarette/Vaping Use Never Used 02/14/23 08:52 Thrive Assessment: Date of Thrive Assessment Date Thrive assessed 12/27/22 02/14/23 08:52 Const General: cooperative, comfortable and no acute distress Orientation/consciousness: patient oriented x3 HENMT Head: Yes normocephalic Eyes General: appearance normal, both eyes and all related structures Neck Neck: Yes supple Chest Chest/axillae images: 2 1. Tender to pressure Resp Effort & Inspection: normal respiratory effort, no cough and no stridor Cardio Rhythm: regular rhythm Heart sounds: S1 normal heart sound present and S2 normal heart sound present Skin General skin exam: turgor normal Neuro Other: Motor 5 x 5, sensory intact both shoulders, DTR equal General: patient oriented x3, tone normal and moves all extremities Extrem Other: Both shoulders with full range of motion Right lower extremity: no edema Left lower extremity: no edema Office Procedures EKG [id number], Complete Assessment and Plan Assessment & Plan (1) Chest discomfort: Code(s): R07.89 - Other chest pain (2) Costochondritis: Code(s): M94.0 - Chondrocostal junction syndrome [Tietze] (3) Right shoulder strain: Code(s): S46.911A - Strain of unspecified muscle, fascia and tendon at shoulder and upper arm level, right arm, initial encounter Qualifiers: Encounter type: initial encounter Qualified Code(s): S46.911A - Strain of unspecified muscle, fascia and tendon at shoulder and upper arm level, right arm, initial encounter (4) Iron deficiency anemia: Code(s): D50.9 - Iron deficiency anemia, unspecified Qualifiers: Iron deficiency anemia type: chronic blood loss Qualified Code(s): D 50.0 - Iron deficiency anemia secondary to blood loss (chronic) (5) Constipation by delayed colonic transit: Code(s): K59.01 - Slow transit constipation Plan Patient has been going to gym and lifting weights She came in today with a chief complaint of feeling of numbness in her right shoulder area And chest discomfort in middle of chest which gets worse when she moves her arms. 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 Letter provided she may continue aerobic exercises and treadmill but no lifting wait for another month. EKG done today showed no acute findings normal sinus rhythm. There is slight are are we have indeed 3 and AVF which does not explain her discomfort There is no change from EKG done in 2019 Patient have iron deficiency anemia, she is supposed to be on iron supplement but still not taking Explained to her that unless she takes the iron she is going to continue feel tired Constipation is better. Orders: Orders 2 AMB EKG-In Office Today R07.89 - Other chest pain Coding Level of Care Code Est Pt Level 4 (96054) Diagnoses Chest discomfort R07.89 Costochondritis M94.0 Strain of right shoulder, initial encounter S46.911A Encounter type: initial encounter Iron deficiency anemia due to chronic blood loss D50.0 Iron deficiency anemia type: chronic blood loss Constipation by delayed colonic transit K59.01 CPT Codes EKG - CPT: [id number], Complete ([id number])
[2023-02-14 08:49] VITALS: BP 110/80; PULSE 80; O2SAT 97; BMI 29.6
== END 2023-02-14 09:19 | disposition home or self-care (01) ==
PROVIDERS: PCP Internal Medicine; Visit Provider Internal Medicine
DX: R07.89 Other chest pain (principal); M94.0 Chondrocostal junction syndrome [Tietze]; S46.911A Strain of unspecified muscle, fascia and tendon at shoulder and upper arm level, right arm, initial encounter; D50.0 Iron deficiency anemia secondary to blood loss (chronic); K59.01 Slow transit constipation
CPT/HCPCS: 93000; 99214

== ENCOUNTER 2023-02-14 13:31 | Outpatient (AMB) | payer OTHER, SELFPAY ==
--- NOTE | 2023-02-14 13:36 | A.OFFVIS_ITS ---
Intake Intake Visit Reasons: Constipation /hemorrhoids Intake Note: Patient new consult for Constipation and hemorrhoids. Patient cc: Constipation and loose stool with bloody hemorrhoids, Nauseas and vomiting in the morning. Campaign Management Specialist Required: No Accompanied by: Self / Same As Patient Allergies No Known Allergies Allergy (Verified 02/14/23 13:36) HPI HPI Comments History of Present Illness Details A 32-year-old female referred with chronic constipation since 2019- she is now having loose stools She says shes been anemic her entire life -she has never had any diagnoses-iron supplements from time to time Followed by PCP, has not yet started iron supplements, this course Senna- taken for 1 month- was helpful- She buys supplement from [employer]- glutamine- as well as other she thought were beneficial-l She has a hemorrhoid that had small amount of bleeding , intermittently. Menses- last 7 days Q 28 D- no BC She is requesting a colonoscopy-however has ever had 1. She has a family history soon cardiac, sudden she is awaiting to be evaluated by Cardiology in which causes her some anxiety as well No nausea, vomiting hematemesis, hematochezia fever chills PFSH Medical History Palpitations Tachycardia Encounter for general adult medical examination with abnormal findings Iron deficiency History of pica Surgical History No pertinent past surgical history Family History Father Aneurysm Mother No problems noted. Maternal Grandmother HTN (hypertension) Maternal Grandfather No problems noted. Paternal Grandfather No problems noted. Paternal Grandmother No problems noted. Daughter No problems noted. Social History Housing: House Alcohol intake: never Patient Tobacco Use Status: Never used Tobacco e-Cigarette/Vaping Use: Never Used Current occupational status: employed Cognitive needs: No Hearing needs: No Vision needs: Yes Review of Systems Const All systems reviewed & are unremarkable except as noted in HPI and below Card Denies chest pain and Denies dyspnea Resp Denies dyspnea GI Reports hematochezia and Reports change in bowel habits Physical Exam Const General: cooperative, healthy appearing, comfortable and no acute distress Limitations: no limitations Eyes Sclerae: sclerae normal Resp Effort & Inspection: normal respiratory effort and able to speak in complete sentences Auscultation: clear to auscultation bilaterally, no rales, no rhonchi and no wheezes Cardio Rate: regular rate Rhythm: regular rhythm Heart sounds: S1 normal heart sound present and S2 normal heart sound present GI Palpation (GI): Soft to palpation, Tenderness to palpation present (GI) ( diffuse) and no guarding Skin General skin exam: no rashes or lesions noted Extrem General: Yes full ROM Psych Appearance: well kempt Mental Status: mental status grossly normal Speech and movement: Clear speech present Affect: Anxious affect present Attitude: cooperative and Guarded attititude/behavior present Assessment & Plan Assessment & Plan (1) Constipation by delayed colonic transit: Comment: With alternating stool pattern, Code(s): K59.01 - Slow transit constipation Plan: Fiber supplement Maintain high-fiber diet Labs Will place order for EGD colonoscopy however will see her back for progress and will await for Cardiology workup-given family history/anxiety (2) Hemorrhoids: Comment: Known hemorrhoids, Declined surgical referral Code(s): K64.9 - Unspecified hemorrhoids Qualifiers: Hemorrhoid type: first degree Qualified Code(s): K64.0 - First degree hemorrhoids Plan: HFD Avoid strain Hydrocortisone cream (3) Anemia: Comment: 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-recommend see chain testing machine operator Code(s): D64.9 - Anemia, unspecified Plan: She will make appointment with chain testing machine operator EGD/colonoscopy-order placed however will not schedule until seen back for progress (4) Rectal bleeding: Comment: Likely hemorrhoidal Reviewed lab Code(s): K62.5 - Hemorrhage of anus and rectum Plan EGD and colonoscopy-however will not schedule until after evaluation with Cardiology MiraLax Gatorade prep Orders: Orders Erythrocyte Sedimentation Rate 02/14/23 D64.9 - Anemia, unspecified EGD/[place] Combo - GI Use Only 02/14/23 D64.9 - Anemia, unspecified, K59.01 - Slow transit constipation, K62.5 - Hemorrhage of anus and rectum, K64.9 - Unspecified hemorrhoids Endomysial IgA rflx Titer 02/14/23 D64.9 - Anemia, unspecified, K64.9 - Unspecified hemorrhoids Transglutaminase IgA 02/14/23 D64.9 - Anemia, unspecified C Reactive Protein 02/14/23 D64.9 - Anemia, unspecified Medications: New calcium polycarbophil (Fiber Laxative (calcium polycarbophil)) 1,250 mg (2 x 625 mg) PO DAILY 30 days 60 tabs 3RF bisacodyl (Dulcolax (bisacodyl)) Day before procedure, prep day Take 4 tablets by mouth upon awakening followed by large glass of water 20 mg (4 x 5 mg) PO ONCE 1 day 4 tabs 0RF colonoscopy prep Z12.11 - Encounter for screening for malignant neoplasm of colon polyethylene glycol 3350 (Miralax) Take as directed by mouth the day before your procedure. 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
== END 2023-02-14 15:07 | disposition home or self-care (01) ==
PROVIDERS: PCP Internal Medicine; Visit Provider Physician Assistant
DX: K59.01 Slow transit constipation (principal); K64.0 First degree hemorrhoids; D64.9 Anemia, unspecified; K62.5 Hemorrhage of anus and rectum
CPT/HCPCS: 99204

== ENCOUNTER → 2023-02-14 13:31 | Outpatient (BNVA) | payer OTHER, SELFPAY | PROVIDERS: PCP Internal Medicine; Visit Provider Physician Assistant | DX: K59.01 Slow transit constipation (principal); K64.0 First degree hemorrhoids; K62.5 Hemorrhage of anus and rectum; D64.9 Anemia, unspecified | CPT/HCPCS: 99202 ==

== ENCOUNTER 2023-03-05 11:02 | Outpatient (AMB) | payer SELFPAY ==
--- NOTE | 2023-03-05 11:04 | A.OFFVIS_ITS ---
Intake Vital Signs 03/05/23 11:08 Height 5 ft 3 in Weight 167 lb BMI 29.6 BP 105/61 Blood Pressure Location Lt brachial Position Sitting Pulse 84 Intake Visit Reasons: Follow up Intake Note: Patient follow up for Anemia. Patient cc: abdominal bloating, acid reflex couples days ago, and constipation. Denies any other GI issues. Practice Physician Required: No Accompanied by: Self / Same As Patient Allergies No Known Allergies Allergy (Verified 03/05/23 11:04) Medication List - Last Reconciled 03/05/23 by Sharla Bingham PA-C bisacodyl (Dulcolax (bisacodyl)) 20 mg (4 x 5 mg) PO ONCE 1 day calcium polycarbophil (Fiber Laxative (calcium polycarbophil)) 1,250 mg (2 x 625 mg) PO DAILY 30 days polyethylene glycol 3350 (Miralax) 238 grams PO ONCE 1 day HPI HPI Comments History of Present Illness Details A 32-year-old anxious female follows up with chronic constipation-she was to begin bowel regimen family hx cardiac she expresses her concern another sibling( brother @ 43) had an [place] last week- previously sister past summer in her 40s- We referred cardiology for evaluation- she is scheduled 04/04/23- We had discussed a bowel regimen- she has not yet started - again reviewed- Fiber supplement Maintain high-fiber diet Hydrocortisone cream Labs- not done order for EGD colonoscopy -await for Cardiology workup-given family history/anxiety 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 Maternal Grandmother HTN (hypertension) Maternal Grandfather No problems noted. Paternal Grandfather No problems noted. Paternal Grandmother No problems noted. Daughter No problems noted. Social History Housing: House Alcohol intake: never Patient Tobacco Use Status: Never used Tobacco e-Cigarette/Vaping Use: Never Used Current occupational status: employed Cognitive needs: No Hearing needs: No Vision needs: Yes Review of Systems Const All systems reviewed & are unremarkable except as noted in HPI and below Card Denies chest pain, Denies rapid heart rate and Denies dyspnea Resp Denies dyspnea GI Denies abdominal pain, Denies hematochezia, Reports constipation, Denies heartburn, Denies nausea and Denies vomiting Physical Exam Vital Signs: Last Vital Signs Pulse 84 03/05/23 11:08 BP 105/61 03/05/23 11:08 BMI result Body Mass Index 29.6 Const General: cooperative, healthy appearing, comfortable and no acute distress Orientation/consciousness: patient oriented x3 Limitations: no limitations Eyes Sclerae: sclerae normal Cardio Rate: regular rate Rhythm: regular rhythm Heart sounds: S1 normal heart sound present and S2 normal heart sound present GI Palpation (GI): Soft to palpation and nontender Auscultation: normal bowel sounds Skin General skin exam: no rashes or lesions noted Neuro General: patient oriented x3 Extrem General: Yes full ROM Psych Appearance: well kempt Mental Status: mental status grossly normal Speech and movement: Normal speech and movement present and Clear speech present Affect: normal affect Attitude: cooperative Thought process: Normal thought process present Thought content: Normal thought content present Results Reviewed Results Reviewed: EKG-pcp- f/u this wk Cardiology 04/2023 Assessment & Plan Assessment & Plan (1) Constipation by delayed colonic transit: Comment: Encourage bowel regimen-may have functional component Code(s): K59.01 - Slow transit constipation Plan: Consistent bowel regimen Maintain high-fiber diet (2) Health problem in family: Comment: 2 siblings in their 40s [place]- Code(s): Z84.89 - Family history of other specified conditions Plan: Cardiology consult pending Plan Will see back after cardiology consult for progress Encourage bowel regimen Patient Instructions: Will see back after cardiology consult for progress Encourage bowel regime Maintain high-fiber diet Encouraged to call questions or concerns Coding Level of Care Code Est Pt Level 3 (41454) Diagnoses Constipation by delayed colonic transit K59.01 Health problem in family Z84.89 Time Spent (min) 30
[2023-03-05 11:08] VITALS: BP 105/61; PULSE 84; BMI 29.6
== END 2023-03-05 11:52 | disposition home or self-care (01) ==
PROVIDERS: PCP Internal Medicine; Visit Provider Physician Assistant
DX: K59.01 Slow transit constipation (principal); Z84.89 Family history of other specified conditions
CPT/HCPCS: 99213

== ENCOUNTER → 2023-03-05 11:02 | Outpatient (BNVA) | payer OTHER, SELFPAY | PROVIDERS: PCP Internal Medicine; Visit Provider Physician Assistant | DX: K59.01 Slow transit constipation (principal); Z82.49 Family history of ischemic heart disease and other diseases of the circulatory system | CPT/HCPCS: 99212 ==

== ENCOUNTER 2024-07-15 15:21 | Outpatient (AMB) | payer OTHER, SELFPAY ==
--- NOTE | 2024-07-15 15:22 | A.OFFPC_ITS ---
Vital Signs 07/15/24 15:23 Height 5 ft 3 in Weight 164 lb BMI 29.0 BP 130/96 H Blood Pressure Location Rt brachial Position Sitting Pulse 73 Pulse Source Pulse Oximeter Pulse Oximetry (%) 93 Oxygen Delivery Method Room Air Intake Visit Reasons: Annual PE Allergies No Known Allergies Allergy (Verified 07/15/24 15:23) Medication List - Last Reconciled 07/15/24 by Joe Hutchinson MD polyethylene glycol 3350 (Miralax) 238 grams PO ONCE 1 day Tobacco use date assessed: 07/15/24 Dental Screening Dental Screen Date: 02/14/23 Did you have a dental visit in the last 12 months?: Yes Did you have a dental problem in the last 6 months where you did not have access to dental care?: No Was dental information given to patient?: Patient has dentist HPI Annual PE HPI Details Physical exam appointment Subjective - The patient is a 34-year-old female pr esenting with episodic chest pain. - Describes the pain as a tightening sen sation localized centrally in the sternum. - Pain is exacerbated by movement, inclu ding small or large movements, and relieved with rest. - Frequency of episodes is approximately monthly, with duration ranging from hours to several days. - Pain onset not associated with any spe cific stressor or activity. - The chest pain episodes are not reliev ed by acetaminophen but resolve spontaneously over time. - Severe constipation, worsening with ir on supplement, characterized by pebble- like stools, and infrequent stool passage. - Anemia likely secondary to heavy menst rual bleeding, with a hemoglobin level of 10.7 g/dL. - The patient monitors dietary choices a nd takes supplements, including vitamin D, to address deficiencies. Medical History - Anemia, previously noted with hemoglob in levels at 10.7, suspected due to heavy menstrual periods. - Constipation, with reports of irregula r bowel movements and association with iron supplements. - High blood pressure, noted during this visit with a measurement of 130/96. - Vitamin D deficiency with supplementat ion initiated. Medications - Iron supplements, taken intermittently due to constipation. - Vitamin D supplements. Diagnostic results - Labs: Hemoglobin 10.7 g/dL indicating anemia; noted in past records as microcytic. - Tests: EKG normal indicating non-cardi ac chest pain. Stress The patient has no identifiable stressors linked to her episodic chest pain. She attempted to correlate the pain with stress but found no consistent associations. When experiencing chest pain, it resolves over time without specific intervention aside from rest. Past Psychiatric History No psychiatric history, mood disturbances, or prior treatment for mental health issues were noted or discussed in this visit. Mental Health and Self Care The patient is proactive about health maintenance as shown by her intent to address anemia and vitamin deficiencies. She experienced a lapse in insurance coverage but has reestablished it and scheduled necessary appointments, indicating a high prioritization of personal health care. Has appointment coming up with OBGYN Counseling Recommendations provided during the visit included discussions about managing anemia, constipation, and vitamin deficiencies. I advised on hydration, bowel regimen, and monitoring blood pressure with minimal salt intake. Exercise The patient has been engaged in physical exercise with a pet trainer in the past but has noted no weight change. Future plans include resuming gym activities alongside dietary changes. 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 - Use Senokot-S for constipation if cove red by insurance, with alternative suggestions provided if necessary. - Take Advil or Aleve with food for pain management instead of Tylenol. - Schedule and complete follow-up lab wo rk. - Continue vitamin supplementation and d ietary adjustments for anemia and vitamin D deficiency. - Follow up with a track template maker re garding constipation if required. - and OBGYN Assessment and Plan 1. Sternal chest pain The patient's chest pain episodes are consistent with musculoskeletal or sternal costochondritis based on normal EKG results. Recommended using NSAIDs like Advil for more effective management than Tylenol. Pain seems stress-unrelated and self-resolving over time. 2. Anemia Previous CBC indicated microcytic anemia, likely secondary to menorrhagia. Recommended iron supplementation balancing constipation effects, and will repeat labs to assess hemoglobin levels and iron status. 3. Constipation This is aggravated by iron supplements and presents with stool pattern changes. Recommended a structured bowel regimen including Senokot-S, and advised adequate hydration and fiber intake. A medical track template maker referral offered for persistent issues. Placed 4. Vitamin D deficiency Ongoing vitamin D supplementation recommended continue due to previous low vitamin D levels. 5. High blood pressure (episodic) Addressed observed elevated reading as situational rather than persistent hypertension. Recommended lifestyle modification including salt reduction. [facility] Medical History Palpitations Tachycardia Encounter for general adult medical examination with abnormal findings Iron deficiency History of pica Surgical History No pertinent past surgical history Family History Father Aneurysm Mother No problems noted. Maternal Grandmother HTN (hypertension) Maternal Grandfather No problems noted. Paternal Grandfather No problems noted. Paternal Grandmother No problems noted. Daughter No problems noted. Social History Housing: House Alcohol intake: never Patient Tobacco Use Status: Never used Tobacco e-Cigarette/Vaping Use: Never Used service: No Current occupational status: employed Cognitive needs: No Hearing needs: No Vision needs: Yes Questionnaire PHQ-9 Over the last 2 weeks, how often have you been bothered by any of the following problems? 71412 - PHQ-9 Billing: Patient declined-do not bill Source: Developed by Drs. Иван Lofton, Shikha Soto, Ganesh Sinha and colleagues, with an educational david from [employer]. Thrive Questionnaire Date Thrive assessed: 07/15/24 I am a: Patient What is your living situation today?: I have a steady place to live Within the past 12 months, did the food you bought not last and you didn't have the money to get more?: Never true Within the past 12 months, did you worry whether your food would run out before you got money to buy more?: Never true Do you have trouble paying for medicines?: No Do you have trouble getting transportation to medical appointments?: No Do you have trouble paying your heating and electricity bill?: No Do you have trouble taking care of your child, family member or friend?: No Do you have trouble with day-to-day activities such as bathing, preparing meals, shopping, managing finances, etc.?: No Are you currently unemployed and looking for a job?: No Are you interested in more education?: No Please select the resources that you would like help with: None Currently or been in a relationship where the following occur: No concerns reported THRIVE Score: 0 AUDIT C Alcohol Use Questionnaire (AUDIT-C) 1. How often do you have a drink containing alcohol?: 2-4 times a month 2. How many drinks containing alcohol do you have on a typical day when you are drinking?: 1 or 2 3. How often do you have six or more drinks on one occasion?: Never Total Score: 2 Score Reviewed/Action Taken: Yes LUL-7 AMB Questionnaire LUL-7 Date LUL - 7 assessed: 07/15/24 Feeling nervous, anxious, or on edge: 0 = Not at all Not being able to stop or control worryin = Not at all Worrying too much about different things: 0 = Not at all Trouble relaxin = Not at all Being so restless that it is hard to sit still: 0 = Not at all Becoming easily annoyed or irritable: 0 = Not at all Feeling afraid as if something awful might happen: 0 = Not at all Total LUL-7 score (0-4 normal; 5-9 mild; 10-14 moderate; 15-21 severe): 0 Source: Developed by Drs. Иван Lofton, Shikha Soto, Ganesh Sinha and colleagues, with an educational david from [employer]. LUL-7 Assessment Billing LUL-7 Assessment Tool: LUL-7 Assessment 80132 Review of Systems Const Denies chills, Denies fever(s) and Denies headache(s) Eyes Denies blurry vision ENT Denies headache(s), Denies nasal discharge, Denies nasal obstruction, Denies odynophagia and Denies sinus pain Resp Denies cough and Denies hemoptysis GI Denies diarrhea, Denies odynophagia, Denies vomiting and Denies hematemesis Reports as per HPI Musc Denies abnormal gait Skin/Breast Reports as per HPI Neuro Denies Neuro-related abnormal movements, Denies Abnormal speech present, Denies abnormal gait, Denies headache(s) and Denies Sensory deficit (Neuro) Psych Denies mood swings and Denies paranoia Endo Reports as per HPI Walker/Lymph Reports as per HPI Aller/Immun Reports as per HPI Physical exam (Primary Care) Vital Signs: Last Vital Signs Pulse 73 07/15/24 15:23 BP 130/96 H 07/15/24 15:23 Pulse Ox 93 07/15/24 15:23 Oxygen Delivery Method Room Air 07/15/24 15:23 BMI result Body Mass Index 29.0 Tobacco/Smoking Status: Tobacco use Status Tobacco use date assessed 07/15/24 07/15/24 15:30 Patient Tobacco Use Status Never used Tobacco 07/15/24 15:30 e-Cigarette/Vaping Use Never Used 07/15/24 15:30 Thrive Assessment: Date of Thrive Assessment Date Thrive assessed 07/15/24 07/15/24 15:46 Currently or been in a relationship where the following occur: No concerns reported Const General: cooperative, comfortable and no acute distress Orientation/consciousness: patient oriented x3 HENMT Head: Yes normocephalic and Yes atraumatic Eyes General: appearance normal, both eyes and all related structures Pupils: Equal, round and reactive pupils present EOM: EOMs intact bilaterally Neck Neck: Yes supple and No lymphadenopathy Thyroid: Thyroid normal Lymphatic: no lymphadenopathy noted Chest Breast/axilla palpation: normal palpation of the breasts Resp Effort & Inspection: normal respiratory effort and able to speak in complete sentences Auscultation: clear to auscultation bilaterally Cardio Heart sounds: S1 normal heart sound present and S2 normal heart sound present GI Palpation (GI): Soft to palpation and nontender Auscultation: normal bowel sounds General: Yes no CVA tenderness Back/Spine/Pelvis Back: no CVA tenderness Skin General skin exam: elasticity normal and turgor normal Neuro General: patient oriented x3 and gait normal Cranial nerves: Yes Equal, round and reactive pupils present Speech: No Abnormal speech present Sensory Exam: No Sensory deficit (Neuro) Coordination: tandem gait normal and Romberg test negative Extrem General: Yes normal exam except as noted and No edema Office Procedures EKG 65574-Hnprrkceyduvaagpf, Complete Coding Level of Care Code Est Pt Level 4 (26523) Est Pt Prev Care 18-39y(99336) Diagnoses Encounter for general adult medical examination with abnormal findings Z00.01 Costochondritis M94.0 Grade I hemorrhoids K64.0 Hemorrhoid type: first degree Dysfunctional uterine bleeding N93.8 Vitamin B 12 deficiency E53.8 Vitamin D deficiency E55.9 Constipation by delayed colonic transit K59.01 Iron deficiency anemia due to chronic blood loss D50.0 Iron deficiency anemia type: chronic blood loss CPT Codes EKG - CPT: 73322-Kkcsakpludtzrarvg, Complete ([id number]) Additional Codes LUL-7 Assessment Billing - LUL-7 Assessment Tool: LUL-7 Assessment 42482 ([id number]) Assessment & Plan Assessment & Plan (1) Encounter for general adult medical examination with abnormal findings: Code(s): Z00.01 - Encounter for general adult medical examination with abnormal findings Category: Medical (2) Costochondritis: Code(s): M94.0 - Chondrocostal junction syndrome [Tietze] Category: Medical (3) Hemorrhoids: Comment: Known hemorrhoids, Declined surgical referral Code(s): K64.9 - Unspecified hemorrhoids Category: Medical Qualifiers: Hemorrhoid type: first degree Qualified Code(s): K64.0 - First degree hemorrhoids (4) Dysfunctional uterine bleeding: Code(s): N93.8 - Other specified abnormal uterine and vaginal bleeding Category: Medical (5) Vitamin B 12 deficiency: Code(s): E53.8 - Deficiency of other specified B group vitamins Category: Medical (6) Vitamin D deficiency: Code(s): E55.9 - Vitamin D deficiency, unspecified Category: Medical (7) Constipation by delayed colonic transit: Code(s): K59.01 - Slow transit constipation Category: Medical (8) Iron deficiency anemia: Code(s): D50.9 - Iron deficiency anemia, unspecified Category: Medical Qualifiers: Iron deficiency anemia type: chronic blood loss Qualified Code(s): D50.0 - Iron deficiency anemia secondary to blood loss (chronic) Plan . Physical exam appointment Subjective - The patient is a 34-year-old female presenting with episodic chest pain. - Describes the pain as a tightening sensation localized centrally in the sternum. - Pain is exacerbated by movement, including small or large movements, and relieved with rest. - Frequency of episodes is approximately monthly, with duration ranging from hours to several days. - Pain onset not associated with any specific stressor or activity. - The chest pain episodes are not relieved by acetaminophen but resolve spontaneously over time. - Severe constipation, worsening with iron supplement, characterized by pebble- like stools, and infrequent stool passage. - Anemia likely secondary to heavy menstrual bleeding, with a hemoglobin level of 10.7 g/dL. - The patient monitors dietary choices and takes supplements, including vitamin D, to address deficiencies. Medical History - Anemia, previously noted with hemoglobin levels at 10.7, suspected due to heavy menstrual periods. - Constipation, with reports of irregular bowel movements and association with iron supplements. - High blood pressure, noted during this visit with a measurement of 130/96. - Vitamin D deficiency with supplementation initiated. Medications - Iron supplements, taken intermittently due to constipation. - Vitamin D supplements. Diagnostic results - Labs: Hemoglobin 10.7 g/dL indicating anemia; noted in past records as microcytic. - Tests: EKG normal indicating non-cardiac chest pain. Stress The patient has no identifiable stressors linked to her episodic chest pain. She attempted to correlate the pain with stress but found no consistent associations. When experiencing chest pain, it resolves over time without sp ecific intervention aside from rest. Past Psychiatric History No psychiatric history, mood disturbances, or prior treatment for mental health issues were noted or discussed in this visit. Mental Health and Self Care The patient is proactive about health maintenance as shown by her intent to address anemia and vitamin deficiencies. She experienced a lapse in insurance coverage but has reestablished it and scheduled necessary appointments, indicating a high prioritization of personal health care. Has appointment coming up with OBGYN Counseling Recommendations provided during the visit included discussions about managing anemia, constipation, and vitamin deficiencies. I advised on hydration, bowel regimen, and monitoring blood pressure with minimal salt intake. Exercise The patient has been engaged in physical exercise with a pet trainer in the past but has noted no weight change. Future plans include resuming gym activities alongside dietary changes. 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 - Use Senokot-S for constipation if covered by insurance, with alternative suggestions provided if necessary. - Take Advil or Aleve with food for pain management instead of Tylenol. - Schedule and complete follow-up lab work. - Continue vitamin supplementation and dietary adjustments for anemia and vitamin D deficiency. - Follow up with a track template maker regarding constipation if required. - and OBGYN Assessment and Plan 1. Sternal chest pain The patient's chest pain episodes are consistent with musculoskeletal or sternal costochondritis based on normal EKG results. Recommended using NSAIDs like Advil for more effective management than Tylenol. Pain seems stress-unrelated and self-resolving over time. 2. Anemia Previous CBC indicated microcytic anemia, likely secondary to menorrhagia. Recommended iron supplementation balancing constipation effects, and will repeat labs to assess hemoglobin levels and iron status. 3. Constipation This is aggravated by iron supplements and presents with stool pattern changes. Recommended a structured bowel regimen including Senokot-S, and advised adequate hydration and fiber intake. A medical track template maker referral offered for persistent issues. Placed 4. Vitamin D deficiency Ongoing vitamin D supplementation recommended continue due to previous low vitamin D levels. 5. High blood pressure (episodic) Addressed observed elevated reading as situational rather than persistent hypertension. Recommended lifestyle modification including salt reduction. Orders: Orders Lipid Panel Today D50.0 - Iron deficiency anemia secondary to blood loss (chronic), E53.8 - Deficiency of other specified B group vitamins, E55.9 - Vitamin D deficiency, unspecified, K59.01 - Slow transit constipation, K64.0 - First degree hemorrhoids, M94.0 - Chondrocostal junction syndrome [Tietze], N93.8 - Other specified abnormal uterine and vaginal bleeding, Z00.01 - Encounter for general adult medical examination with abnormal findings Vitamin D 25-OH (D2 and D3) Today D50.0 - Iron deficiency anemia secondary to blood loss (chronic), E53.8 - Deficiency of other specified B group vitamins, E55.9 - Vitamin D deficiency, unspecified, K59.01 - Slow transit constipation, K64.0 - First degree hemorrhoids, M94.0 - Chondrocostal junction syndrome [Tietze], N93.8 - Other specified abnormal uterine and vaginal bleeding, Z00.01 - Encounter for general adult medical examination with abnormal findings TSH reflex Free T4 Today D50.0 - Iron deficiency anemia secondary to blood loss (chronic), E53.8 - Deficiency of other specified B group vitamins, E55.9 - Vitamin D deficiency, unspecified, K59.01 - Slow transit constipation, K64.0 - First degree hemorrhoids, M94.0 - Chondrocostal junction syndrome [Tietze], N93.8 - Other specified abnormal uterine and vaginal bleeding, Z00.01 - Encounter for general adult medical examination with abnormal findings Ferritin Today D50.0 - Iron deficiency anemia secondary to blood loss (chronic), E53.8 - Deficiency of other specified B group vitamins, E55.9 - Vitamin D deficiency, unspecified, K59.01 - Slow transit constipation, K64.0 - First degree hemorrhoids, M94.0 - Chondrocostal junction syndrome [Tietze], N93.8 - Other specified abnormal uterine and vaginal bleeding, Z00.01 - Encounter for general adult medical examination with abnormal findings Complete Blood Count Auto Diff Today D50.0 - Iron deficiency anemia secondary to blood loss (chronic), E53.8 - Deficiency of other specified B group vitamins, E55.9 - Vitamin D deficiency, unspecified, K59.01 - Slow transit constipation, K64.0 - First degree hemorrhoids, M94.0 - Chondrocostal junction syndrome [Tietze], N93.8 - Other specified abnormal uterine and vaginal bleeding, Z00.01 - Encounter for general adult medical examination with abnormal findings Comprehensive [place]. Panel Fast Today D50.0 - Iron deficiency anemia secondary to blood loss (chronic), E53.8 - Deficiency of other specified B group vitamins, E55.9 - Vitamin D deficiency, unspecified, K59.01 - Slow transit constipation, K64.0 - First degree hemorrhoids, M94.0 - Chondrocostal junction syndrome [Tietze], N93.8 - Other specified abnormal uterine and vaginal bleeding, Z00.01 - Encounter for general adult medical examination with abnormal findings Vitamin B12 Today D50.0 - Iron deficiency anemia secondary to blood loss (chronic), E53.8 - Deficiency of other specified B group vitamins, E55.9 - Vit schaeffer D deficiency, unspecified, K59.01 - Slow transit constipation, K64.0 - First degree hemorrhoids, M94.0 - Chondrocostal junction syndrome [Tietze], N93.8 - Other specified abnormal uterine and vaginal bleeding, Z00.01 - Encounter for general adult medical examination with abnormal findings Referrals Gastroenterology Referral K59.01 - Slow transit constipation Medications: New sennosides-docusate sodium 8.6-50 mg (Senokot-S) 1 tab-cap PO BEDTIME 90 days 90 tabs 0RF constipation K59.03 - Drug induced constipation, T40.2X5A - Adverse effect of other opioids, initial encounter
[2024-07-15 15:23] VITALS: BP 130/96; PULSE 73; O2SAT 93; BMI 29.0
--- OUTSIDE RECORDS SUMMARY | 2024-07-15 18:32 | XMS_ITS | Clinical Summary ---
Author Organization [facility] Address [address] [place] [address] Phone Care Team Providers Care Human Resources Professional Name Role Phone Physician, No Pcp Primary Care Provider Unavaila ble Medications No known medications Encounters Date Type Department Care Team Description 06/02/2024 4:04 PM EST - 06/02/2024 7:47 PM EST Emergency [facility] Emergency [address] [place] [address] Discharge Disposition: Home or Self Care from Last 3 Months Social History Tobacco Use Types Packs/Day Years Used Date Smoking Tobacco: Never Smokeless Tobacco: Never Tobacco Cessation:Counseling Given: Not Answered Alcohol Use Standard Drinks/Week Comments Yes 0 (1 standard drink = 0.6 oz pur e alcohol) Comments No Sex and Gender Information Value Date Recorded Sex Assigned at Female 06/02/2024 7:02 PM EST Legal Sex Female 9:33 AM EST Gender Identity Female 06/02/2024 7:02 PM EST Sexual Orientation Straight 06/02/2024 7: 02 PM EST Obstetrics History Last Filed Vital Signs Vital Sign Reading Time Taken Comments Blood Pressure 136/81 06/02/2024 4:23 PM EST Pulse 71 06/02/2024 4:23 PM EST Temperature 37 ??C (98.6 ??F) 06/02/2024 4:23 PM EST Respiratory Rate 20 06/02/2024 4:23 PM EST Oxygen Saturation 99% 06/02/2024 4:23 PM EST Inhaled Oxygen Concentration - - Weight 74.8 kg (165 lb) 06/02/2024 4:23 PM EST Height 157.5 cm (5' 2 ) 06/02/2024 4:23 PM EST Body Mass Index 30.18 06/02/2024 4:23 PM EST Plan of Treatment Health Maintenance Due Date Last Done Comments Cervical Cancer Screening: Pap Smear 2013 DTaP,Tdap,and Td Vaccines (8 - Td or Tdap) 03/29/2020 03/29/2010, 08/19/2002, 09/15/1996, Additional history exists COVID-19 Vaccine ( season) 2023 Influenza Vaccine (Season Ended) 2024 HIB Vaccines Completed 08/25/1993, 12/02, 1992, Additional history exists IPV Vaccines Completed 09/15/1996, 03/03, 1992, Additional history exists HPV Vaccines Completed 04/29/2007, 12/02, 10/18/2006 Hepatitis B Vaccines Completed 07/21/2017, 04/27/1993, 1992, Additional history exists MMR Vaccines Completed 03/17/2019, 11/01, 07/21/2017, Additional history exists Hepatitis A Vaccines Aged Out No long er eligible based on patient's age to complete this topic Meningococcal ACWY Vaccine Aged Out N o longer eligible based on patient's age to complete this topic Meningococcal B Vaccine Aged Out No l onger eligible based on patient's age to complete this topic Pneumococcal Vaccine: Pediatrics (0 to 5 Years) and At-Risk Patients (6 to 64 Years) Aged Out No longer eligible based on patient's age to complete this topic RSV Immunization Patients Under 20 months Aged Out No longer eligible based on patient's age to complete this topic Varicella Vaccines Aged Out No longer eligible based on patient's age to complete this topic Procedures Procedure Name Priority Date/Time Associated Diagnosis Comments ECG ANNOTATED 06/04/2024 from Last 3 Months Results * ECG-Annotated (06/04/2024) us Provider Onbase MD ECG ORDERABLES Final Result from Last 3 Months Care Teams Human Resources Professional Relationship Specialty Start Date End Date Physician, No Pcp PCP - General 06/02/24
--- OUTSIDE RECORDS SUMMARY | 2024-07-15 18:32 | XMS_ITS | Data Portability ---
Author Organization [facility], [facility] Address [address] [place] [address] Assessment No assessment recorded. Plan of Treatment Reminders Order Date Submit Date Provider Last Modified By Organization Details Last Modified Time Details Appointments None recorded. Lab rapid strep group A, throat 2023 024 [email or web address] [address] [address], [address] [place], [address], 4 09:02:28 rapid flu (A+B) 2023 024 [email or web address] [address] [address], [address] [place], [address], 4 09:02:30 SARS CoV 2 (COVID-19) Ag, QL, IA, upper respiratory specimen 2023 024 [email or web address] [address] [address], [address] [place], [address], 4 09:02:31 Referral None recorded. Procedures None recorded. Surgeries None recorded. Imaging None recorded. Medication Orders None recorded. Patient TargetsNo targets recorded. Patient InstructionsNo instructions recorded. Reason for Referral None Reported. Results Created Date Observation Date Name Description Value Unit Range Abnormal Flag Note LastModifiedBy Organization Detail LastModifiedTime 09/05/19 24 09/05/2023 SARS CoV 2 (COVI D-19) Ag, QL, IA, upper respi rator y speci men Unknown Analyte positi ve Not Available [address] [place], [address], 09/05/2023 08:36:43 09/05/19 24 09/05/2023 SARS CoV 2 (COVI D-19) Ag, QL, IA, upper respi rator y speci men Unknown Analyte yes Not Available [address] [place] [address] [place] [address], [phone], 09/05/2023 08:36:43 09/05/19 24 09/05/2023 rapid flu (A+B) Unknown Analyte negati ve Not Available [address] [place] [address], [address], 09/05/2023 08:36:34 09/05/19 24 09/05/2023 rapid flu (A+B) Unknown Analyte negati ve Not Available [address] [place] [address], [address], 09/05/2023 08:36:34 09/05/19 24 09/05/2023 rapid flu (A+B) Unknown Analyte yes Not Available [address] [place] [address] [place] [address], [address], 09/05/2023 08:36:34 09/05/19 24 09/05/2023 rapid strep group A, throa t Unknown Analyte negati ve Not Available [address] [place] [address], [address], 09/05/2023 08:36:25 09/05/19 24 09/05/2023 rapid strep group A, throa t Unknown Analyte yes Not Available [address] [place] [address] [place] [address], [address], 09/05/2023 08:36:25 Result Notes None recorded. Problems No Known Problems Medical Equipment None Reported. Medications Name Sig Start Date Stop Date Status Note LastModified by Organization Details LastModified Time Iron (ferrous sulfate) 325 mg (65 mg iron) tablet Take 1 tablet every day by oral route around the clock. active Not Available Not Available No t Available Fiber Laxative (calcium polycarboph il) 625 mg tablet TAKE 2 TABLETS BY MOUTH EVERY DAY FOR 30 DAYS 09/04 completed Not Available Not Available Not Available cyanocobala min (vit B-12) 1,000 mcg tablet TAKE 1 TABLET BY MOUTH EVERY DAY 09/04 completed Not Available Not Available Not Available nystatin-tr iamcinolone 100,000 unit/g-0.1 % topical cream APPLY 1 APPLICATI ON TOPICALLY 3 TIMES A DAY FOR 5DAYS 09/04 completed Not Available Not Available Not Available bisacodyl 5 mg tablet,herberth yed release PLEASE SEE ATTACHED FOR DETAILED DIRECTION S 09/04 completed Not Available Not Available Not Available polyethylen e glycol 3350 17 gram/dose oral powder TAKE DIRECTED BY MOUTH THE DAY BEFORE YOUR PROCEDURE . 09/04 completed Not Available Not Available Not Available Vitals Date Recorded Oxygen saturation Oxygen saturation in Arterial blood by Pulse oximetry Heart rate Body height Respiratory rate Body mass index (BMI) Body weight Body temperature Pain severity - 0-10 verbal numeric rating [Score] - Reported Systolic blood pressure Diastolic blood pressure Provider Name and Address Organization Details Last Updated DateTime 97 % 97 % 76 /min 157.48 cm 18 /min 30.5 kg/m2 11519.9 3 g 98.3 [degF] 0 117 mm[Hg] 75 mm[Hg] Ludmila Gomez [employer] [facility] 08:36:07 Social History Question Answer Notes LastModified by Organizat ion Details LastModified Time Tobacco Smoking Status Never Smoker [facility] 09/05/2023 08:33:44 What Is Your Level Of Alcohol Consumption? Occasional [email or web address] Information not available 09/05/2023 How Many Times Per Week Do You Consume Alcohol? Less Than 1 Time Per Week [email or web address] Information not available 09/05/2023 Are You Currently Employed? No [email or web address] Information not available 09/05/2023 What Is The Highest Grade Or Level Of School You Have Completed Or The Highest Degree You Have Received? [id number] [email or web address] Information not available 09/05/2023 Have You Had A Flu Shot This Season? No [email or web address] Information not available 09/05/2023 If No, Would You Like A Flu Shot Today? No [email or web address] Information not available 09/05/2023 Have You Had Direct Contact, Or Contact During Intimacy, With Monkeypox Rash, Scabs, Or Body Fluids From A Person With Monkeypox? No [email or web address] Information not available 09/05/2023 What Was The Date Of Your Most Recent Tobacco Screening? 09/05/2023 [email or web address] Information not available 09/05/2023 Do You Use Any Illicit Or Recreational Drugs? No Information not available 09/05/2023 Have You Recently Traveled Abroad? No [email or web address] Information not available 09/05/2023 Are You Currently In School? No [email or web address] Information not available 09/05/2023 Do You Or Have You Ever Used Any Other Forms Of Tobacco Or Nicotine? No [email or web address] Information not available 09/05/2023 Sex: Unknown Functional Status None recorded. Mental Status None recorded. Family History Relationship Description Onset Age of this Age Resolved Age Notes LastModified by Organization Details LastModified Time Father No current problems or disability [email or web address] Not available 08/2023 08:33:22 Mother No current problems or disability [email or web address] Not available 08/2023 08:33:22 Medical History No medical history recorded. Gynecological History Statement/Question Response Date of LMP 08/15/2023 Is there any chance of ? No LMP Approximate Obstetrics History GPAL:G 0 P 0 0 0 0 Immunizations Vaccine Type Date Status Note Provider Nam e and Address Organization Details Recorded Time Hib, unspecified formulation 3 completed Ludmila Lebron null, [place] - [facility] 09/05/2023 08:30:52 Hib, unspecified formulation 4 completed Ludmila Lebron null, PA - [facility] 09/05/2023 08:30:52 Hib, unspecified formulation 3 completed Ludmila Lebron null, PA - [facility] 09/05/2023 08:30:52 Hib, unspecified formulation 3 completed Ludmila Lebron null, PA - [facility] 09/05/2023 08:30:52 MMR 8 completed Ludmila Lebron null, PA - [facility] 09/05/2023 08:30:52 MMR 4 completed Ludmila Lebron null, PA - [facility] 09/05/2023 08:30:52 MMR 8 completed Ludmila Lberon null, PA - [facility] 09/05/2023 08:30:52 MMR 8 completed Ludmila Lebron null, PA - [facility] 09/05/2023 08:30:52 MMR 9 completed Ludmila Lebron null, PA - [facility] 09/05/2023 08:30:52 Tdap 0 completed Ludmila Lebron null, PA - [facility] 09/05/2023 08:30:52 Hep B, unspecified formulation 8 completed Ludmila Lebron null, PA - [facility] 09/05/2023 08:30:52 OPV 3 completed Ludmila Lebron null, PA - [facility] 09/05/2023 08:30:53 OPV 7 completed Ludmila Lebron null, PA - [facility] 09/05/2023 08:30:53 OPV 3 completed Ludmila Lebron null, PA - [facility] 09/05/2023 08:30:53 OPV 4 completed Ludmila Lebron null, PA - [facility] 09/05/2023 08:30:53 HPV, quadrivalent 8 completed Ludmila Lebron null, PA - [facility] 09/05/2023 08:30:53 HPV, quadrivalent 7 completed Ludmila Lebron null, PA - [facility] 09/05/2023 08:30:53 HPV, quadrivalent 7 completed Ludmila Lebron null, PA - [facility] 09/05/2023 08:30:53 Td (adult), 2 Lf tetanus toxoid, preservative free, adsorbed 3 completed Ludmila Lebron null, PA - [facility] 09/05/2023 08:30:53 Hep B, adolescent or pediatric 4 completed Ludmila Lebron null, PA - [facility] 09/05/2023 08:30:53 Hep B, adolescent or pediatric 3 completed Ludmila Lebron null, PA - [facility] 09/05/2023 08:30:53 Hep B, adolescent or pediatric 3 completed Ludmila Lebron null, PA - [facility] 09/05/2023 08:30:53 DTaP 3 completed Ludmila Lebron null, PA - [facility] 09/05/2023 08:30:53 DTaP 7 completed Ludmila Lebron null, PA - [facility] 09/05/2023 08:30:53 DTaP 3 completed Ludmila Lebron null, PA - [facility] 09/05/2023 08:30:53 DTaP 3 completed Ludmila Lebron null, PA - [facility] 09/05/2023 08:30:53 DTaP 4 completed Ludmila Lebron null, PA - [facility] 09/05/2023 08:30:53 Past Encounters Encounter ID Performer Location Encounter Start Date Encounter Closed Date Diagnosis/Indication Diagnosis SNOMED-CT Code Diagnosis ICD10 Code Diagnosis Note [id number] [address] [address] 05/12/2016 11:56:28 05/12/2016 12:56:36 [id number] [address] [address] 05/12/2016 11:50:19 05/12/2016 12:56:41 [id number] [facility] [place] [address] [facility] [address] [facility] [place] [address] 09/05/2023 08:16:47 09/05/2023 09:03:56 COVID-19 914996017 U07.1 You have been Diagnosed with COVID - your Rapid COVID test was positive. I recommend the following to help with your symptoms of this viral infection: 1. Take Ibuprofen or Tylenol if you do not have any allergies to these medication s. If you take a blood thinner you should not take NSAIDS like Ibuprofen. These medication will help with the inflammati on in your respirator y tract which should help the cough.2. I suggest taking a Antihistam ine (loratadin e or cetirizine or Melina or benadryl) - to help with the congestion . I would advise this over a decongesta nt.3. Saline Nasal Spray4. Salt Water Gargles. I would be seen again immediatel y in the Emergency Room if you develop:1. Shortness of Breath2. Chest Pain3. Fever > 101.04. Lethargy or Confusion. You should notify you PCP that you have been diagnosed with this infection. Below is the current CDC guidelines . Updated CDC Guidelines for Quarantine and Testing- 04/09/2021 If You Test Positive for COVID-19 (Isolate)E veryone, regardless of vaccinatio n status. 1. Stay home for 5 days.2. If you have no symptoms or your symptoms are resolving after 5 days, you can leave your house.3. Continue to wear a mask around others for 5 additional days. If you have a fever or feel worse, continue to stay home until your fever resolves._ If You Were Exposed to Someone with COVID-19 (Quarantin e)If you:Have been boosted ORComplete d the primary series of Pfizer or Moderna vaccine within the last 6 months.ORC ompleted the primary series of J&J vaccine within the last 2 months 1. Wear a mask around others for 10 days.2. Test on day 5, if possible.3 . If you develop symptoms get a test and stay home. If you: Completed the primary series of Pfizer or Moderna vaccine over 6 months ago and are not boostedORC ompleted the primary series of J&J over 2 months ago and are not boostedORA re un-vaccina aram 1. Stay home for 5 days. After that continue to wear a mask around others for 5 additional days.2. Test on day 5, if possible. If you develop symptoms get a test and stay home Quarantine Calculatio n:Day 0: is the first day of symptoms or a positive viral test.Day 1: is the first full day after your symptoms developed or when your test specimen was collected. Exposure:D ay 1: is the first full day after your last known contact with a person that tested positive for COVID 19. [facility] Thank you for visiting [place] today, please feel free to call our office you have any questions or concerns. Health Concerns Section Related Observation LastModified by Organization Detai ls LastModified Time None Recorded Concern Status LastModified by Organization Details LastModified Time None Recorded Advance Directives Directive None Recorded Payers Encounter Date Sequence Insurance Name Policy Number Policy Escobedo Covered Member ID Escobedo Member ID Guarantor Name 09/05/2023 PROMPT PAY Jennifer Cassidy Notes Date Note Type Note Provider Name and Address Organization Details Recorded Time 09/05/2023 text/html 33 y/o female here with congestion, sore throat, ear fullness, and swollen lymph nodes for the past 3-4 days, no fevers, but she has had body aches and chills [place], [address], [place] - [facility] 09/05/2023 09:05:19 OBGyn Episode No OBEpisode recorded.
== END 2024-07-15 15:54 | disposition home or self-care (01) ==
LOC: HO.HMCC 15:21
PROVIDERS: PCP Internal Medicine; Visit Provider Internal Medicine
DX: Z00.01 Encounter for general adult medical examination with abnormal findings (principal); M94.0 Chondrocostal junction syndrome [Tietze]; K64.0 First degree hemorrhoids; N93.8 Other specified abnormal uterine and vaginal bleeding; E53.8 Deficiency of other specified B group vitamins; E55.9 Vitamin D deficiency, unspecified; K59.01 Slow transit constipation; D50.0 Iron deficiency anemia secondary to blood loss (chronic)

== ENCOUNTER → 2024-07-15 15:21 | Outpatient (BNVA) | payer OTHER, SELFPAY | PROVIDERS: PCP Internal Medicine; Visit Provider Internal Medicine | DX: Z00.01 Encounter for general adult medical examination with abnormal findings (principal); M94.0 Chondrocostal junction syndrome [Tietze]; K64.0 First degree hemorrhoids; N93.8 Other specified abnormal uterine and vaginal bleeding; E53.8 Deficiency of other specified B group vitamins; E55.9 Vitamin D deficiency, unspecified; K59.01 Slow transit constipation; D50.0 Iron deficiency anemia secondary to blood loss (chronic) | CPT/HCPCS: 93005; 96127 ==

== ENCOUNTER 2024-07-28 08:12 | Outpatient (REF) | payer OTHER, SELFPAY ==
--- OUTSIDE RECORDS SUMMARY | 2024-07-28 08:27 | XMS_ITS | Data Portability ---
Author Organization [facility], [facility] Address [address] [place] [address] Assessment No assessment recorded. Plan of Treatment Reminders Order Date Submit Date Provider Last Modified By Organization Details Last Modified Time Details Appointments None recorded. Lab rapid strep group A, throat 2023 024 [email or web address] [address] [address], [address] [place], [address], 4 09:02:28 rapid flu (A+B) 2023 024 [email or web address] [address] [address], [address] [place], [address], 4 09:02:30 SARS CoV 2 (COVID-19) Ag, QL, IA, upper respiratory specimen 2023 024 [email or web address] [address] [address], [address] [place], [address], 4 09:02:31 Referral None recorded. Procedures None [...] ve Not Available [address] [place], [address], 09/05/2023 08:36:43 09/05/19 24 09/05/2023 SARS CoV 2 (COVI D-19) Ag, QL, IA, upper respi rator y speci men Unknown Analyte yes Not Available [id number] [place] [address] [place] [address], [phone], 09/05/2023 08:36:43 09/05/19 24 09/05/2023 rapid flu (A+B) Unknown Analyte negati ve Not Available [address] [place] [address], [address], 09/05/2023 08:36:34 09/05/19 24 09/05/2023 rapid flu (A+B) Unknown Analyte negati ve Not Available [address] [place] [address], [address], 09/05/2023 08:36:34 09/05/19 24 09/05/2023 rapid flu (A+B) Unknown Analyte yes Not Available [id number] [place] [address] [place] [address], [address], 09/05/2023 08:36:34 09/05/19 24 09/05/2023 rapid strep group A, throa t Unknown Analyte negati ve Not Available [address] [place] [address], [phone], 09/05/2023 08:36:25 09/05/19 24 09/05/2023 rapid strep group A, throa t Unknown Analyte yes Not Available [id number] [place] [address] [place] [address], [address], 09/05/2023 08:36:25 Result Notes None recorded. Problems [...] /min 157.48 cm 18 /min 30.5 kg/m2 94801.9 3 g 98.3 [degF] 0 117 mm[Hg] 75 mm[Hg] Ludmila Gomez [employer] [facility] 08:36:07 Social History Question Answer Notes LastModified by Organizat ion Details LastModified Time Tobacco Smoking Status Never Smoker [facility] 09/05/2023 08:33:44 What Is Your Level Of Alcohol Consumption? Occasional [email or web address] Information not available 09/05/2023 How Many Times Per Week Do You Consume Alcohol? Less Than 1 Time Per Week Information not available 09/05/2023 Are You Currently Employed? No [email or web address] Information not available 09/05/2023 What Is The Highest Grade Or Level Of School You Have Completed Or The Highest Degree You Have Received? JE48830-7 [email or web address] Information not available 09/05/2023 Have You Had A Flu Shot This Season? No [email or web address] Information not available 09/05/2023 If No, Would You Like A Flu Shot Today? No [email or web address] Information not available 09/05/2023 Have You Had Direct Contact, Or Contact During Intimacy, With Monkeypox Rash, Scabs, Or Body Fluids From A Person With Monkeypox? No [email or web address] Information not available 09/05/2023 What Was The Date Of Your Most Recent Tobacco Screening? 09/05/2023 [email or web address] Information not available 09/05/2023 Do You Use Any Illicit Or Recreational Drugs? No Information not available 09/05/2023 Have You Recently Traveled Abroad? No [email or web address] Information not available 09/05/2023 Are You Currently In School? No Information not available 09/05/2023 Do You Or Have You Ever Used Any Other Forms Of Tobacco Or Nicotine? No [email or web address] Information not available 09/05/2023 Sex: Unknown Functional Status None recorded. Mental Status None recorded. Family History Relationship Description Onset Age of this Age Resolved Age Notes LastModified by Organization Details LastModified Time Father No current problems or disability [email or web address] Not available 08/2023 08:33:22 Mother No current problems or disability [email or web address] Not available 08/2023 08:33:22 Medical History No [...] [facility] 09/05/2023 08:30:53 OPV 3 completed Ludmila Leborn null, PA - [facility] 09/05/2023 08:30:53 [...] SNOMED-CT Code Diagnosis ICD10 Code Diagnosis Note [id number] [address] [address] 05/12/2016 11:56:28 05/12/2016 12:56:36 [id number] [address] [address] 05/12/2016 11:50:19 05/12/2016 12:56:41 [id number] E[facility] [place] [address] [facility] [address] [facility] [place] [address] 09/05/2023 08:16:47 09/05/2023 09:03:56 COVID-19 [id number] U07.1 You have been Diagnosed with COVID [...] [facility] Thank you for visiting [place] [facility] today, please feel free to call our [...] aches and chills [place], [address], [place] - [facility] 09/05/2023 09:05:19 OBGyn Episode No OBEpisode recorded.
--- OUTSIDE RECORDS SUMMARY | 2024-07-28 08:27 | XMS_ITS | Clinical Summary ---
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
[2024-07-28 10:05] LABS: MANUAL DIFF FLAG NO
[2024-07-28 10:12] LABS: Basophils Percent Auto 0.4 % (0-2); Eosinophils Absolute Auto 0.1 X10*3/uL (0.0-0.4); Eosinophils Percent Auto 1.7 % (0-4); Hematocrit 39.5 % (37.0-47.0); Hemoglobin 12.1 g/dl (12.0-16.0); Lymphocytes Absolute Auto 2.2 X10*3/uL (1.2-4.9); Lymphocytes Percent Auto 48.6 % (20-40); Mean Corpuscular HGB Conc 30.6 g/dl (31.0-35.0); Mean Corpuscular Hemoglobin 26.9 pg (27.0-33.0); Mean Corpuscular Volume 87.8 fL (80.0-98.0); Mean Platelet Volume 10.7 fL (9.4-12.3); Monocytes Absolute Auto 0.2 X10*3/uL (0.1-1.2); Monocytes Percent Auto 4.4 % (2-11); Neutrophils Absolute Auto 2.1 x10*3/uL (2.0-8.3); Neutrophils Percent Auto 44.9 % (45-73); Platelet Count 238 X10*3/uL (160-400); Red Cell Distribution Width 14.5 % (11.0-16.0); White Blood Count 4.6 X10*3/uL (4.8-10.8)
[2024-07-28 10:27] LABS: Alanine Aminotransferase 11 U/L (0-31); Albumin Level 4.2 g/dL (3.5-5.0); Alkaline Phosphatase 57 U/L (39-117); Anion Gap 12 (12-20); Aspartate Amino Transferase 19 U/L (5-31); Bilirubin Total 0.3 mg/dL (0.0-1.0); Blood Urea Nitrogen 10 mg/dL (9-16); Calcium 9.8 mg/dL (8.4-10.2); Carbon Dioxide 27 mmol/L (22-29); Chloride 109 mmol/L (96-108); Cholesterol 193 mg/dL (<200); Estimated Glomerular Filt Rate > 60; Glucose Fasting 90 mg/dL (60-99); HDL Cholesterol 57 mg/dL (>40); LDL Cholesterol Calculated 117 mg/dL (<100); Potassium 4.1 mmol/L (3.3-5.1); Sodium 144 mmol/L (135-145); Total Protein 7.3 g/dL (6.5-8.0); Triglycerides 98 mg/dL (<150)
[2024-07-28 10:50] LABS: Ferritin 18 ng/mL (10-122); TSH reflex Free T4 0.88 uIU/mL (0.32-4.0); Vitamin B12 437 pg/mL (200-900)
[2024-07-31 14:53] LABS: Vitamin D 25-OH, D2 <4 ng/mL; Vitamin D 25-OH, D3 26 ng/mL; Vitamin D 25-OH, Total 26 ng/mL (30-100)
== END 2024-07-28 08:13 | disposition home or self-care (01) ==
LOC: HO.HMGCLDS 08:12
PROVIDERS: PCP Internal Medicine; Visit Provider Internal Medicine
DX: Z00.01 Encounter for general adult medical examination with abnormal findings (principal); D50.0 Iron deficiency anemia secondary to blood loss (chronic); K59.01 Slow transit constipation; E55.9 Vitamin D deficiency, unspecified; E53.8 Deficiency of other specified B group vitamins; N93.8 Other specified abnormal uterine and vaginal bleeding; K64.0 First degree hemorrhoids; M94.0 Chondrocostal junction syndrome [Tietze]
CPT/HCPCS: 36415; 80053; 80061; 82306; 82607; 82728; 84443; 85025

== ENCOUNTER 2024-07-30 15:06 | Outpatient (AMB) | payer OTHER, SELFPAY ==
--- NOTE | 2024-07-30 15:08 | A.OFFVIS_ITS ---
Vital Signs 07/30/24 15:10 Height 5 ft 3 in Weight 165 lb BMI 29.2 BP 121/86 Blood Pressure Location Lt brachial Position Sitting Pulse 78 Oxygen Delivery Method Room Air Intake Visit Reasons: CONSTIPATION/Sharla nguyen 03/05/2023 Intake Note: Patient follow up for Esophageal dysmotility & constipation, wendy was 11/15/2022. Patient cc: abdominal bloating, constipation with some blood on and off, denies any other GI issues for today. Stone Breaker Required: No Accompanied by: Self / Same As Patient Allergies No Known Allergies Allergy (Verified 07/30/24 15:09) Medication List - Last Reconciled 07/30/24 by Ailyn Edward CNP cholecalciferol (vitamin D3) 25 mcg PO DAILY ferrous sulfate 325 mg PO DAILY methylcellulose (laxative) (Citrucel) 500 mg PO DAILY polyethylene glycol 3350 (Miralax) 17 grams PO DAILY 30 days sennosides-docusate sodium 8.6-50 mg (Senokot-S) 1 tab-cap PO BEDTIME 90 days HPI HPI CONSTIPATION/Sharla nguyen 03/05/2023: Details: Patient is a 34-year-old female with PMH of iron deficiency anemia and vitamin deficiency. Last visit with E[facility] Patton 03/05/2023 for follow-up on anemia. Patient presents today for follow-up regarding changes in bowel habits. Shares her lapse in care was due to lost of insurance. The patient reports the onset of constipation beginning around October/December 2018, which she associates with taking a colon cleanse tablet. Since then, she has experienced a decrease in bowel movement frequency, now having bowel movements approximately 1?2 times per week. Stool consistency alternates between [place] types 1 and 4, with occasional loose stools. She reports associated symptoms of incomplete evacuation and straining. The patient also describes a brief ?flash? sensation that radiates from her back to her mid-abdomen or vice versa, lasting only seconds. She reports blood on the toilet paper approximately 5?6 times and one episode of blood in the toilet bowl. She endorses a history of hemorrhoids. She has been using senna as recently prescribed by her PCP. She reports limited effectiveness with Miralax. Reports long history of anemia noted since age 18, initially identified at the time of her first childbirth. She reports no formal diagnosis regarding the source of anemia but endorses menorrhagia, with her heaviest menstrual flow occurring on days 1?3 of her cycle. She has been consistently taking iron supplements for the past several months. She recently followed up with her PCP for her continued postional chest pain and underwent an EKG. She expresses concern for significant family history of cardiac disease. Shares her Father from presumed myocardial infarction. Sister experienced cardiac arrest secondary to UT at age 43. Brother had an UT at age 44. common food consumed: pasta, chicken, beef, rice increased vegetables and fruit intake this past month Endorses adequate hydration, up to 80oz a most days Patient denies: fever/chills, n/v, appetite changes, pyrosis, regurgitation, dysphasia ,unintentional wt loss or ab pain. Social hx: up to 3 mixed drinks 3x/month daily marijuana use, denies other recreational drug use non-smoker -family hx as below -denies personal hx of CA -denies any other significant cardiopulmonary history -tolerated anesthesia in the past without difficulty. [facility] Medical History (Updated 07/30/24 @ 17:16 by Ailyn Edward CNP) Constipation Palpitations Tachycardia Encounter for general adult medical examination with abnormal findings Iron deficiency History of pica Surgical History No pertinent past surgical history Family History (Updated 07/30/24 @ 15:40 by iAlyn Edward CNP) Father Aneurysm Heart disease Mother No problems noted. Maternal Grandmother HTN (hypertension) Maternal Grandfather No problems noted. Paternal Grandfather No problems noted. Paternal Grandmother No problems noted. Daughter No problems noted. Social History Housing: House Alcohol intake: never Patient Tobacco Use Status: Never used Tobacco e-Cigarette/Vaping Use: Never Used service: No Current occupational status: employed Cognitive needs: No Hearing needs: No Vision needs: Yes Review of Systems Const Reports as per HPI ENT Reports as per HPI Card Reports as per HPI Resp Reports as per HPI GI Reports as per HPI Reports as per HPI Physical Exam Vital Signs: Oxygen Delivery Method Room Air 07/30/24 15:10 BMI result Body Mass Index 29.2 Const General: healthy appearing, no acute distress and well developed Nutritional Appearance: well nourished Orientation/consciousness: patient oriented x3 HEENT Head: Yes normal to inspection, Yes normocephalic and Yes atraumatic Face and sinus: Yes normal facial exam Eyes General: appearance normal, both eyes and all related structures Neck Neck: Yes normal visual inspection Resp Effort & Inspection: normal respiratory effort, able to speak in complete sentences, no tracheal deviation and symmetric chest movement Auscultation: clear to auscultation bilaterally Cardio Jugular venous distension: no JVD Rate: regular rate Rhythm: regular rhythm Heart sounds: S1 normal heart sound present, S2 normal heart sound present, no gallops and no murmurs GI Inspection: Yes normal to inspection and No distended Palpation (GI): Soft to palpation, not firm, nontender and No hepatosplenomegaly present Auscultation: normal bowel sounds Neuro General: patient oriented x3 Gait exam (Neuro): Normal gait present Psych Appearance: grossly normal Mental Status: mental status grossly normal Speech and movement: Normal speech and movement present Affect: normal affect Attitude: cooperative Thought process: Normal thought process present Thought content: Normal thought content present Insight: Good insight present (Psych) Judgement: Good judgement present (Psych) Results Reviewed Results Reviewed: Laboratory Tests 07/28/24 08:16 Hgb 12.1 Hct 39.5 MCV 87.8 MCH 26.9 L MCHC 30.6 L Ferritin 18 Total Bilirubin 0.3 AST 19 ALT 11 Alkaline Phosphatase 57 Total Protein 7.3 Albumin 4.2 Assessment & Plan Assessment & Plan (1) Constipation: Code(s): K59.00 - Constipation, unspecified Category: Medical Qualifiers: Constipation type: unspecified constipation type Qualified Code(s): K59.00 - Constipation, unspecified Plan: Chronic. Do believe she would benefit from fiber supplementation. Discussion on formulation, powder is preferred over gummies or tablets. However, she is not keen on powder. We will start with tablets, Citrucel prescription sent to preferred pharmacy. We will also add MiraLax and encouraged to continue senna can take up to 2 tablets daily. Reinforced lifestyle modifications to promote regularity: -higher fiber diet, examples provided -adequate hydration with water -150 minutes of moderate intensity exercise per week (2) Anemia: Code(s): D64.9 - Anemia, unspecified Category: Medical Qualifiers: Anemia type: unspecified type Qualified Code(s): D64.9 - Anemia, unspecified Plan: Patient with a chronic history of microcytic anemia on prior CBC, likely related to decreased iron absorption. Differential includes menorrhagia, inflammatory bowel disease (IBD), or celiac disease. Patient reports intermittent use of iron supplementation. Iron levels were within normal limits in 2021; however, it is unclear whether this was due to supplementation. Repeat laboratory work has been ordered for reassessment. A colonoscopy was previously planned to further evaluate for gastrointestinal sources of iron loss. However, due to the patient's persistent chest pain and significant family history, we recommend obtaining cardiology clearance prior to proceeding with the procedure. (3) Chest discomfort: Code(s): R07.89 - Other chest pain Category: Medical Plan: Presentation appears musculoskeletal in nature. However, given the patient?s concern and a significant family history of cardiac disease, we will proceed with a referral to cardiology for further evaluation and clearance prior to colonoscopy. Plan Follow-up in 8 weeks or sooner as needed Time: I spent a total of 60 minutes on the date of encounter which includes: Preparing to see the patient (reviewed previous documentation, test results and medical history) Performing a medically appropriate exam and/or evaluation Ordering medications, tests, and procedures Documenting clinical information in the health record Orders: Orders Transglutaminase IgA Today K59.00 - Constipation, unspecified Calprotectin, Fecal Today K59.00 - Constipation, unspecified C Reactive Protein Today K59.00 - Constipation, unspecified IRON PROFILE Today D64.9 - Anemia, unspecified Referrals Cardiology Referral R07.89 - Other chest pain, Z82.49 - Family history of ischemic heart disease and other diseases of the circulatory system Medications: New polyethylene glycol 3350 (Miralax) Take 17G (one cap full) daily with 8oz of water 17 grams PO DAILY 30 days 238 grams 2RF constipation methylcellulose (laxative) (Citrucel) 500 mg PO DAILY 90 tabs 1RF Discontinued polyethylene glycol 3350 (Miralax) Take as directed by mouth the day before your procedure. Discontinued Reason: No Longer Medically Relevant 238 grams PO ONCE 1 day 238 grams 0RF laxative effect Coding Level of Care Code Established Pt Est Pt Level 5 (10038) Patient Type Established Diagnoses Constipation, unspecified constipation type K59.00 Constipation type: unspecified constipation type Anemia, unspecified type D64.9 Anemia type: unspecified type Chest discomfort R07.89
[2024-07-30 15:10] VITALS: BP 121/86; PULSE 78; BMI 29.2
--- OUTSIDE RECORDS SUMMARY | 2024-07-30 16:10 | XMS_ITS | Data Portability ---
Author Organization [facility], [address] Address [address] [place] [address] Assessment No assessment recorded. Plan of Treatment Reminders Order Date Submit Date Provider Last Modified By Organization Details Last Modified Time Details Appointments None recorded. Lab rapid strep group A, throat 2023 024 [email or web address] [address] [address], [address] [place], [address], 4 09:02:28 rapid flu (A+B) 2023 024 [email or web address] [address] [address], [address] [place], [address], 4 09:02:30 SARS CoV 2 (COVID-19) Ag, QL, IA, upper respiratory specimen 2023 024 [email or web address] [address] [address], [address] [place], [address], 4 09:02:31 Referral None recorded. Procedures None [...] ve Not Available [address] [place], [address], 09/05/2023 08:36:43 09/05/19 24 09/05/2023 SARS CoV 2 (COVI D-19) Ag, QL, IA, upper respi rator y speci men Unknown Analyte yes Not Available [id number] [place] [address] [place] [address], [phone], 09/05/2023 08:36:43 09/05/19 24 09/05/2023 rapid flu (A+B) Unknown Analyte negati ve Not Available [address] [place] [address], [phone], 09/05/2023 08:36:34 09/05/19 24 09/05/2023 rapid flu (A+B) Unknown Analyte negati ve Not Available [address] [place] [address], [phone], 09/05/2023 08:36:34 09/05/19 24 09/05/2023 rapid flu (A+B) Unknown Analyte yes Not Available [id number] [place] [address] [place] [address], [phone], 09/05/2023 08:36:34 09/05/19 24 09/05/2023 rapid strep group A, throa t Unknown Analyte negati ve Not Available [address] [place] [address], [phone], 09/05/2023 08:36:25 09/05/19 24 09/05/2023 rapid strep group A, throa t Unknown Analyte yes Not Available [id number] [place] [address] [place] [address], [phone], 09/05/2023 08:36:25 Result Notes None recorded. Problems [...] /min 157.48 cm 18 /min 30.5 kg/m2 98825.9 3 g 98.3 [degF] 0 117 mm[Hg] 75 mm[Hg] Ludmila Gomez [facility] 08:36:07 Social History Question Answer Notes LastModified by Organizat ion Details LastModified Time Tobacco Smoking Status Never Smoker [facility] 09/05/2023 08:33:44 What Is Your Level Of Alcohol Consumption? Occasional [email or web address] Information not available 09/05/2023 How Many Times Per Week Do You Consume Alcohol? Less Than 1 Time Per Week [email or web address] Information not available 09/05/2023 Are You Currently Employed? No [email or web address] Information not available 09/05/2023 What Is The Highest Grade Or Level Of School You Have Completed Or The Highest Degree You Have Received? [id number] [email or web address] Information not available 09/05/2023 Have You Had A Flu Shot This Season? No Information not available 09/05/2023 If No, Would You Like A Flu Shot Today? No [email or web address] Information not available 09/05/2023 Have You Had Direct Contact, Or Contact During Intimacy, With Monkeypox Rash, Scabs, Or Body Fluids From A Person With Monkeypox? No [email or web address] Information not available 09/05/2023 What Was The Date Of Your Most Recent Tobacco Screening? 09/05/2023 [email or web address] Information not available 09/05/2023 Do You Use Any Illicit Or Recreational Drugs? No Information not available 09/05/2023 Have You Recently Traveled Abroad? No [email or web address] Information not available 09/05/2023 Are You Currently In School? No [email or web address] Information not available 09/05/2023 Do You Or Have You Ever Used Any Other Forms Of Tobacco Or Nicotine? No [email or web address] Information not available 09/05/2023 Sex: Unknown Functional Status None recorded. Mental Status None recorded. Family History Relationship Description Onset Age of this Age Resolved Age Notes LastModified by Organization Details LastModified Time Father No current problems or disability [email or web address] Not available 08/2023 08:33:22 Mother No current problems or disability [email or web address] Not available 08/2023 08:33:22 Medical History No [...] SNOMED-CT Code Diagnosis ICD10 Code Diagnosis Note [id number] [address] [address] [place] [address] 05/12/2016 11:56:28 05/12/2016 12:56:36 [id number] [facility] [address] [facility] [address] [facility] [place] [address] 05/12/2016 11:50:19 05/12/2016 12:56:41 [id number] [facility]ARNER [address] [facility] [address] [facility] [place] [address] 09/05/2023 08:16:47 09/05/2023 09:03:56 COVID-19 [id number] U07.1 You have been Diagnosed with COVID [...] [facility] HUM[facility] Thank you for visiting [facility] today, please feel free to call our [...] ID Guarantor Name 09/05/2023 PROMPT PAY Jennifer amaya Khanh Notes Date Note Type Note Provider Name and Address Organization Details Recorded Time 09/05/2023 text/html 33 y/o female here with congestion, sore throat, ear fullness, and swollen lymph nodes for the past 3-4 days, no fevers, but she has had body aches and chills [facility] [place] [address] [place], [address], [place] - [facility] 09/05/2023 09:05:19 OBGyn Episode No OBEpisode recorded.
--- OUTSIDE RECORDS SUMMARY | 2024-07-30 16:10 | XMS_ITS | Clinical Summary ---
Author Organization [facility] Address [address] [place] [address] Phone Care Team Providers Care Art Consultant Name Role Phone Physician, No Pcp Primary Care Provider Unavaila ble Medications No known medications Encounters Date Type Department Care Team Description 06/02/2024 4:04 PM EST - 06/02/2024 7:47 PM EST Emergency [facility] Emergency [address] [place] [address] Discharge Disposition: Home or Self [...] Result from Last 3 Months Care Teams Art Consultant Relationship Specialty Start Date End Date Physician, No Pcp PCP - General 06/02/24
== END 2024-07-30 16:00 | disposition home or self-care (01) ==
LOC: HO.HGI 15:07
PROVIDERS: PCP Internal Medicine; Visit Provider Nurse Practitioner Family
DX: K59.00 Constipation, unspecified (principal); D64.9 Anemia, unspecified; R07.89 Other chest pain
CPT/HCPCS: 99215; 99417

== ENCOUNTER 2024-09-23 13:58 | Outpatient (AMB) | payer OTHER, SELFPAY ==
[2024-09-23 14:01] VITALS: BP 122/79; PULSE 71; BMI 29.0
--- NOTE | 2024-09-23 14:01 | A.OFFVIS_ITS ---
Vital Signs 09/23/24 14:01 Height 5 ft 2 in Weight 158 lb 11.725 oz BMI 29.0 BP 122/79 Blood Pressure Location Lt brachial Position Sitting Pulse 71 Intake Visit Reasons: 8 wks. f/u Constipation Intake Note: Komal presents in the office as a 8 weeks follow up constipation. CC: She states that she is still having the constipation but the senna seems to work when she doubles up. She is a little concerned because her weight has gone down and she is not doing anything different to lose weight. Agricultural Service Technician Required: No Allergies No Known Allergies Allergy (Verified 09/23/24 14:05) HPI HPI 8 wks. f/u Constipation: Details: Patient is a 34-year-old female with PMH of iron deficiency anemia, and vitamin deficiency. Komal present for follow up on constipation. Initially, bowel movements occurred once or twice a week, but with the introduction of a stool softener, the consistency and frequency of stools have improved. Currently, bowel movements occur every two to three days. The patient has been using a stool softener effectively, adjusting the dose to two tablets at night with a signific ant increase in water intake. Miralax was trialed for five to six days without notable improvement. No new blood in stools since starting the stool softener, and no nausea or vomiting. There was an occasional loose stool reported She expresses concern about weight loss. Shares she recently returned from vacation and experienced 7lb weight loss despite increased food intake, including a diet higher in junk food. She denies any assocating symptoms. Reports a recent dental issue (tooth breakage), attributed by dentist to possible stress; maintains regular oral hygiene. Shares she is current on cervical cancer screening. [facility] Medical History (Updated 09/23/24 @ 14:22 by Ailyn Edward CNP) Unintentional weight loss Constipation Palpitations Tachycardia Encounter for general adult medical examination with abnormal findings Iron deficiency History of pica Surgical History No pertinent past surgical history Family History (Updated 07/30/24 @ 15:40 by Ailyn Edward CNP) Father Aneurysm Heart disease Mother No problems noted. Maternal Grandmother HTN (hypertension) Maternal Grandfather No problems noted. Paternal Grandfather No problems noted. Paternal Grandmother No problems noted. Daughter No problems noted. Social History Housing: House Alcohol intake: never Patient Tobacco Use Status: Never used Tobacco e-Cigarette/Vaping Use: Never Used service: No Current occupational status: employed Cognitive needs: No Hearing needs: No Vision needs: Yes Review of Systems Const Reports as per HPI ENT Reports as per HPI Card Reports as per HPI Resp Reports as per HPI GI Reports as per HPI Reports as per HPI Physical Exam Const General: healthy appearing, no acute distress and well developed Nutritional Appearance: well nourished Orientation/consciousness: patient oriented x3 HEENT Head: Yes normal to inspection, Yes normocephalic and Yes atraumatic Face and sinus: Yes normal facial exam Eyes General: appearance normal, both eyes and all related structures Neck Neck: Yes normal visual inspection and Yes no lymphadenopathy Lymphatic: no lymphadenopathy noted Resp Effort & Inspection: normal respiratory effort, able to speak in complete sentences, no tracheal deviation and symmetric chest movement Auscultation: clear to auscultation bilaterally Cardio Jugular venous distension: no JVD Rate: regular rate Rhythm: regular rhythm Heart sounds: S1 normal heart sound present, S2 normal heart sound present, no gallops and no murmurs GI Inspection: Yes normal to inspection and No distended Palpation (GI): Soft to palpation, not firm, nontender and No hepatosplenomegaly present Auscultation: normal bowel sounds Neuro General: patient oriented x3 Gait exam (Neuro): Normal gait present Psych Appearance: grossly normal Mental Status: mental status grossly normal Speech and movement: Normal speech and movement present Affect: normal affect Attitude: cooperative Thought process: Normal thought process present Thought content: Normal thought content present Insight: Good insight present (Psych) Judgement: Good judgement present (Psych) Assessment & Plan Assessment & Plan (1) Unintentional weight loss: Code(s): R63.4 - Abnormal weight loss Category: Medical Plan: 4.2% weight loss over two months without increased activity or dietary restriction, despite increased caloric intake. No GI red flags, but further workup warranted. Additional Tests: Repeat thyroid function, standard metabolic panel, chest X- ray, CBC. Medications: Continue iron supplement as prescribed. Lifestyle Modifications: Daily weight tracking, calculate weekly average. (2) Constipation: Code(s): K59.00 - Constipation, unspecified Category: Medical Qualifiers: Constipation type: unspecified constipation type Qualified Code(s): K59.00 - Constipation, unspecified Plan: Patient has improved stool frequency and consistency with stool softener and increased hydration. Miralax was ineffective. Occasional loose stool noted. No alarming GI symptoms. Additional Tests: CBC, stool studies (to rule out celiac and inflammatory bowel disease), thyroid function tests, chest X-ray Medications: Continue stool softener, 2 tabs HS, refills sent. Discontinue Miralax per pt preference Reinforced lifestyle modifications to promote regularity: -higher fiber diet, examples provided -adequate hydration with water -150 minutes of moderate intensity exercise per week (3) Iron deficiency anemia: Code(s): D50.9 - Iron deficiency anemia, unspecified Category: Medical Qualifiers: Iron deficiency anemia type: chronic blood loss Qualified Code(s): D50.0 - Iron deficiency anemia secondary to blood loss (chronic) Plan: Patient on iron supplementation, taking with orange juice on empty stomach, reports improved adherence. Additional Tests: repeat CBC, iron studies, colonoscopy, cardiac clearance for colonoscopy-patient to follow up on appt scheduling Medications: Continue iron supplement as prescribed. Lifestyle Modifications: Continue current regimen, maintain vitamin C intake with iron for absorption. Plan Follow-up in 3 months or sooner as needed Time: I spent a total of 30 minutes on the date of encounter which includes: Preparing to see the patient (reviewed previous documentation, test results and medical history) Performing a medically appropriate exam and/or evaluation Ordering medications, tests, and procedures Documenting clinical information in the health record Orders: Orders Hepatitis A,B,C Profile Today R63.4 - Abnormal weight loss TSH reflex Free T4 Today R63.4 - Abnormal weight loss Comprehensive Met. Panel Today R63.4 - Abnormal weight loss Complete Blood Count Auto Diff Today R63.4 - Abnormal weight loss Hemoglobin A1c Today R63.4 - Abnormal weight loss HIV Ab/Ag Today R63.4 - Abnormal weight loss IRON PROFILE Today R63.4 - Abnormal weight loss XR chest 2V Today R63.4 - Abnormal weight loss Medications: New bisacodyl Take four tablets once for 1 day per colonoscopy instructions 5 mg PO ONCE 4 tabs 0RF 1 day polyethylene glycol 3350 (Miralax) per colonoscopy prep instructions 238 grams PO ONCE 238 grams 0RF Changed From sennosides-docusate sodium 8.6-50 mg (Senokot-S) 1 tab-cap PO BEDTIME 90 days 90 tabs 0RF constipation K59.03 - Drug induced constipation, T40.2X5A - Adverse effect of other opioids, initial encounter To sennosides-docusate sodium 8.6-50 mg (Senokot-S) Take two tablets nightly 2 tab-caps (2 x 8.6-50 mg) PO BEDTIME 180 tabs 1RF constipation 90 days K59.03 - Drug induced constipation, T40.2X5A - Adverse effect of other opioids, initial encounter Discontinued polyethylene glycol 3350 (Miralax) Take 17G (one cap full) daily with 8oz of water Discontinued Reason: Patient Refused 17 grams PO DAILY 30 days 238 grams 2RF constipation Coding Level of Care Code New Pt Est Pt Level 4 (76523) Patient Type New Diagnoses Unintentional weight loss R63.4 Constipation, unspecified constipation type K59.00 Constipation type: unspecified constipation type Iron deficiency anemia due to chronic blood loss D50.0 Iron deficiency anemia type: chronic blood loss
== END 2024-09-23 14:27 | disposition home or self-care (01) ==
LOC: HO.HGI 13:58
PROVIDERS: PCP Internal Medicine; Visit Provider Nurse Practitioner Family
DX: R63.4 Abnormal weight loss (principal); K59.00 Constipation, unspecified; D50.0 Iron deficiency anemia secondary to blood loss (chronic)
CPT/HCPCS: 99214

== ENCOUNTER 2024-09-23 13:58 | Outpatient (REF) | payer OTHER, SELFPAY ==
--- NOTE | ~2024-09-23 | XR_ITS ---
EXAMINATION: XR CHEST CLINICAL INFORMATION: R63.4 - Abnormal weight loss COMPARISON: None available. TECHNIQUE: 2 views of the chest were obtained. FINDINGS: No consolidation, pleural fissure pneumothorax. No hyperinflation. Cardiomediastinal silhouette size is normal. Osseous structures are intact. XR/XR chest 2V IMPRESSION: No acute airspace disease. Poor inspiration. Electronically signed by: Stephane Reyes MD 09/23/2024 03:06 PM EDT
[2024-09-23 14:52] LABS: MANUAL DIFF FLAG NO
[2024-09-23 15:29] LABS: Basophils Percent Auto 0.2 % (0-2); Eosinophils Absolute Auto 0.1 X10*3/uL (0.0-0.4); Eosinophils Percent Auto 1.4 % (0-4); Hematocrit 38.8 % (37.0-47.0); Hemoglobin 12.4 g/dl (12.0-16.0); Imm Gran Abs Auto 0.01 X10*3/uL (0.00-0.03); Imm Gran Pct Auto 0.2 % (0.0-0.4); Lymphocytes Absolute Auto 2.3 X10*3/uL (1.2-4.9); Lymphocytes Percent Auto 45.6 % (20-40); Mean Corpuscular Hemoglobin 27.6 pg (27.0-33.0); Mean Corpuscular Volume 86.2 fL (80.0-98.0); Mean Platelet Volume 10.7 fL (9.4-12.3); Monocytes Absolute Auto 0.3 X10*3/uL (0.1-1.2); Monocytes Percent Auto 4.9 % (2-11); Neutrophils Absolute Auto 2.4 x10*3/uL (2.0-8.3); Neutrophils Percent Auto 47.7 % (45-73); Platelet Count 224 X10*3/uL (160-400); Red Cell Distribution Width 13.4 % (11.0-16.0); White Blood Count 5.1 X10*3/uL (4.8-10.8)
[2024-09-23 15:59] LABS: Estimated Average Glucose 94 mg/dL; Hemoglobin A1c % 4.9 % (<6.0)
[2024-09-23 16:08] LABS: Alanine Aminotransferase 8 U/L (0-31); Albumin Level 4.7 g/dL (3.5-5.0); Alkaline Phosphatase 64 U/L (39-117); Anion Gap 12 (12-20); Aspartate Amino Transferase 18 U/L (5-31); Bilirubin Total 0.4 mg/dL (0.0-1.0); Blood Urea Nitrogen 8 mg/dL (9-16); Calcium 10.1 mg/dL (8.4-10.2); Carbon Dioxide 26 mmol/L (22-29); Chloride 109 mmol/L (96-108); Estimated Glomerular Filt Rate > 60; Glucose Random 81 mg/dL (60-115); Iron 88 mcg/dL (30-160); Percent Iron Saturation 29 % (15-50); Sodium 143 mmol/L (135-145); Total Iron Binding Capacity 301 mcg/dL (228-428); Total Protein 7.5 g/dL (6.5-8.0); Unsaturated Iron Binding 213 ug/dL
[2024-09-23 16:17] LABS: TSH reflex Free T4 0.54 uIU/mL (0.32-4.0)
--- OUTSIDE RECORDS SUMMARY | 2024-09-23 17:43 | XMS_ITS | Clinical Summary ---
Author Organization [facility] Address [address] [place] [address] Phone Care Team Providers Care Manager Of Internal Audit Name Role Phone Physician, No Pcp Primary Care Provider Unavaila ble Medications No known medications Social History Tobacco Use Types Packs/Day Years [...] 73 06/02/2024 4:23 PM EST Temperature 37 C (98.6 F) 06/02/2024 4:23 PM EST Respiratory Rate 20 [...] on patient's age to complete this topic Care Teams Manager Of Internal Audit Relationship Specialty Start Date End Date Physician, No Pcp PCP - General 06/02/24
[2024-09-24 08:06] LABS: HBS Num1 1.84 mIU/mL (0-7.99); HBc Num1 0.06 S/CO (0.00-0.79); HBsAGNum1 0.47 S/CO (0.00-0.99); HIV AB/AG Nonreactive (Nonreactive); HIV Num 1 0.08 S/CO (0.00-0.99); Hepatitis A Antibody IgM 0.26 Index (0-0.79); Hepatitis B Core Antibody Nonreactive (Nonreactive); Hepatitis B Surface Antigen Negative (Negative); ~HepC Num1 0.13 S/CO (0.00-0.79); ~Hepatitis A Antibody IgM Nonreactive (Nonreactive); ~Hepatitis B Surface Antibody NONREACTIVE (Nonreactive); ~Hepatitis C Antibody Nonreactive (Nonreactive)
[2024-09-25 22:39] LABS: Transglutaminase IgA <1.0 U/mL
== END 2024-09-23 13:59 | disposition home or self-care (01) ==
LOC: HO.XRAY 13:58
PROVIDERS: PCP Internal Medicine; Visit Provider Nurse Practitioner Family
DX: R63.4 Abnormal weight loss (principal); K59.00 Constipation, unspecified; D50.0 Iron deficiency anemia secondary to blood loss (chronic)
CPT/HCPCS: 36415; 71046; 80053; 83036; 83540; 84443; 85025; 86140; 86364; 86704; 86706; 86709; 86803; 87340; 87389

== ENCOUNTER → 2024-09-23 14:52 | Outpatient (BNV) | payer OTHER, SELFPAY | PROVIDERS: PCP Internal Medicine; Visit Provider Radiology Diagnostic Radiology | DX: R06.89 Other abnormalities of breathing (principal) | CPT/HCPCS: 71046 ==